=== PATIENT | female | born 1960 | race Caucasian/White ===

== ENCOUNTER → 2018-04-15 10:47 | Outpatient (CLI) | payer OTHER, MEDICAID, SELFPAY ==
[2018-04-15 13:06] LABS: Alanine Aminotransferase 46 IU/L (9-52); Albumin 4.2 g/dL (3.5-5.0); Albumin Globulin Ratio 1.3 (1.0-2.8); Alkaline Phosphatase 54 U/L (38-126); Aspartate Aminotransferase 45 IU/L (14-36); BUN Creatinine Ratio 12.2 (6-22); Bilirubin Total 0.4 mg/dL (0.2-1.3); Blood Urea Nitrogen 11 mg/dL (7-17); Calcium 9.4 mg/dL (8.4-10.2); Carbon Dioxide 27 mmol/L (22-32); Chloride 103 mmol/L (98-107); Estimated Glomerular Filt Rate > 60.0 mL/min (>60); Globulin 3.2 g/dL (1.7-4.1); Glucose 72 mg/dL (70-100); HEMOLYSIS < 15 (0-50); Potassium 4.7 mmol/L (3.4-5.1); Sodium 141 mmol/L (137-145); Total Protein 7.4 g/dL (6.3-8.2)
[2018-04-15 13:15] LABS: Free T3, Triiodothyronine Free 3.54 pg/mL (2.77-5.27); Free T4, Direct Thyroxine 1.17 ng/dL (0.78-2.19)
[2018-04-15 13:29] LABS: Thyroid Stimulating Hormone < 0.02 uIU/mL (0.47-4.68)
== END ==
PROVIDERS: PCP Family Medicine; Visit Provider Family Medicine
DX: E03.9 Hypothyroidism, unspecified (principal)
CPT/HCPCS: 36415; 80053; 84439; 84443; 84481

== ENCOUNTER 2018-12-11 04:18 | Emergency (ER) | payer OTHER, MEDICAID, SELFPAY ==
[2018-12-11 04:25] VITALS: BP 122/82; PULSE 88; RESP 18; TEMP 36.4; O2SAT 98; BMI 29.2
--- NOTE | 2018-12-11 04:32 | DI.CT.S_ITS ---
PROCEDURE: CT HEAD/BRAIN WO CON INDICATIONS: syncope with head injury TECHNIQUE: Noncontrast 4.5 mm thick angled axial sections acquired from the foramen magnum to the vertex, with coronal and sagittal reformats. For radiation dose reduction, the following was used: automated exposure control, adjustment of mA and/or kV according to patient size. COMPARISON: None. FINDINGS: Image quality: Excellent. CSF spaces: Basal cisterns are patent. No extra-axial fluid collections. The ventricles are symmetric in size and shape. Brain: No intracranial bleeds or masses. There is cerebral volume loss for age, with resultant ventricular and sulcal prominence. There are periventricular and deep white matter chronic small vessel ischemic changes. There is intracranial internal carotid artery atherosclerosis. Skull and face: Mild left frontal scalp swelling. Calvarium and visualized facial bones appear intact, without suspicious lesions. Sinuses: Visualized sinuses and mastoids are clear. IMPRESSION: 1. No acute intracranial abnormalities. No significant discrepancy with the shift manager radiology preliminary report. Dictated by: Radha Bustamante M.D. on 12/11/2018 at 7:37 Approved by: Radha Bustamante M.D. on 12/11/2018 at 7:39
[2018-12-11 05:02] LABS: Add Manual Diff / Slide Review NO; Basophils Absolute Auto 100 /uL (0-100); Basophils Percent Auto 0.9 % (0-2); Eosinophils Absolute Auto 500 /uL (0-450); Eosinophils Percent Auto 8.4 % (2-4); Lymphocytes Absolute Auto 1800 /uL (1100-4500); Mean Corpuscular HGB Conc 33.3 % (30-36); Mean Corpuscular Hemoglobin 31.4 PG (26-34); Mean Corpuscular Volume 94.6 fL (80-100); Monocytes Absolute Auto 500 /uL (0-900); Monocytes Percent Auto 7.1 % (3-14); Neutrophils Absolute Auto 3700 /uL (1500-7000); Neutrophils Percent Auto 56.6 % (50-75); Platelet Count 293 X10^3/uL (150-400); Red Blood Cell Count 4.13 X10^6/uL (4.0-5.2); Red Cell Distribution Width 13.8 % (11.6-14.8); White Blood Cell Count 6.5 X10^3/uL (4.5-11.0)
[2018-12-11 05:09] LABS: Blood Urea Nitrogen 9 mg/dL (7-17); Calcium 9.4 mg/dL (8.4-10.2); Carbon Dioxide 25 mmol/L (22-32); Chloride 105 mmol/L (98-107); Estimated Glomerular Filt Rate > 60.0 mL/min (>60); Glucose 87 mg/dL (70-100); HEMOLYSIS < 15 (0-50); Potassium 3.9 mmol/L (3.4-5.1); Sodium 140 mmol/L (137-145)
--- NOTE | 2018-12-11 05:24 | ED_ITS ---
HPI - Head Injury General Chief complaint: Head Injury Stated complaint: KNOCKED YOURSELF OUT Time Seen by Provider: 12/11/18 04:21 Source: patient Mode of arrival: ambulatory Limitations: no limitations History of Present Illness HPI Narrative: 58-year-old female nonsmoker with history fibromyalgia and a yet undiagnosed gait disturbance presents with a chief complaint of what she suspects is a trip and fall with a head injury resulting in a brief loss of consciousness. She awoke in her bathtub with a frontal headache and an abrasion on her forehead and suspects that she tripped and fell, knocking herself out. She admits to a mild headache but denies any other symptoms such as nausea, vomiting, blurred vision or other. She takes no blood thinners denies alcohol or other injury. She was able to safely and easily walk from her home [address] without difficulty. She states she has had many falls and multiple evaluations including MRIs for the possibility of multiple sclerosis which in the and were unremarkable. MD Complaint: head injury Onset (ago): minute(s) Mechanism of Injury: fall Place: home Loss of Consciousness: yes Location of injury: frontal Severity: mild Quality: aching Radiation: none Other Injuries: none Associated symptoms: denies other symptoms Related Data Home Medications Medication Instructions Recorded Confirmed pilocarpine 5 mg tablet 5 mg PO TID PRN 04/16/18 10/02/18 Previous Rx's Medication Instructions Recorded beclomethasone dipropionate [Qvar] 1 puff INH BID #1 inh 10/26/16 spinosad [Natroba] 120 ml TOPICAL X1 #1 ea 10/22/17 albuterol sulfate [Ventolin HFA] 0 INH SEE INSTRUCTIONS #1 inh 12/04/17 gabapentin [Neurontin] 300 mg PO TIDP PRN #90 cap 01/27/18 hydrocodone 5 mg-acetaminophen 300 1 tab PO Q4-6H PRN #7 tab 04/26/18 mg tablet pantoprazole 40 mg tablet,delayed 40 mg PO DAILY #30 tab 04/26/18 release psyllium husk 3.4 gram/5.4 gram 1 tbsp PO DAILY #660 gram 04/26/18 oral powder liothyronine [Cytomel] 15 mcg PO QDAY #270 tab 05/23/18 polyethylene glycol 3350 17 17 gram PO DAILY #510 gram 06/04/18 gram/dose oral powder alprazolam 1 mg tablet 1 mg PO .QIDP #120 tab 10/02/18 amitriptyline 100 mg tablet See Rx Instructions PO HS #45 tab 10/02/18 bupropion HCl SR 150 mg tablet,12 300 mg PO QAM #60 tab 10/02/18 hr sustained-release fluoxetine 20 mg capsule 40 mg PO DAILY #60 cap 10/02/18 baclofen 10 mg tablet 20 mg PO Q8H PRN #60 tab 11/07/18 levothyroxine 0.1 mg PO QAM #90 tab 11/24/18 estradiol 0.1 mg/24 hr semiweekly 1 patch TRANSDERMAL 2XW #8 each 11/25/18 transdermal patch Allergies Allergy/AdvReac Type Severity Reaction Status Date / Time Penicillins [PENICILLINS] Allergy Intermediate HIVES Verified 06/04/18 14:31 Sulfa (Sulfonamide Allergy Intermediate HIVES Verified 06/04/18 14:31 Antibiotics) Review of Systems Constitutional Denies chills, Denies fever(s), Reports frequent falls, Reports headache(s), Denies lethargy and Denies weakness Eyes Denies change in vision, Denies eye discharge, Denies irritation and Denies loss of vision ENT Ears, Nose, Mouth, and Throat: Denies change in voice, Reports headache(s), Denies neck pain and Denies sore throat Cardiovascular Denies chest pain, Denies irregular heart rhythm, Denies lightheadedness, Denies palpitations, Denies dyspnea, Denies dyspnea on exertion and Denies orthopnea Respiratory Denies cough, Denies dyspnea, Denies dyspnea on exertion and Denies wheezing Gastrointestinal Gastrointestinal: Denies abdominal pain, Denies change in bowel habits, Denies diarrhea, Denies nausea and Denies vomiting Genitourinary Denies hematuria, Denies flank pain, Denies urinary incontinence and Denies urinary urgency Musculoskeletal Denies neck pain Integumentary/Breasts Denies pruritus, Denies erythema, Denies rash and Denies wounds Neurologic Denies confusion, Reports frequent falls, Reports headache(s), Denies loss of vision and Denies weakness Psychiatric Denies anxiety, Denies confusion, Denies depression, Denies homicidal ideation and Denies suicidal ideation Endocrine Denies palpitations Hematologic/Lymphatic Denies easy bruising Allergic/Immunologic Denies wheezing PFSH Medical History ADD (attention deficit disorder) (Chronic) ADHD (attention deficit hyperactivity disorder) (Chronic) Agoraphobia (Chronic) Anemia (Chronic) Ankle pain (Chronic ~1997) Anorexia nervosa (Chronic ~1975) Anxiety (Chronic) Asthma (Chronic ~1967) Chlamydia (Chronic ~1983) Colon polyps (Chronic ~1998) Depression (Chronic) Eczema (Chronic) Fibromyalgia (Chronic) Hemorrhoids (Chronic ~1983) History of frequent headaches (Chronic) Hypothyroidism (Chronic) IBS (irritable bowel syndrome) (Chronic ~1978) Migraines (Chronic ~1983) Oral herpes (Chronic) Ovarian cyst (Chronic) PTSD (post-traumatic stress disorder) (Chronic) Painful menstrual periods (Chronic) Rubella (Chronic) Seasonal allergies (Chronic) Shoulder pain (Chronic) Tinnitus (Chronic) Abnormal chest x-ray (Resolved ~2005) Chickenpox (Resolved) History of ankle fracture (Resolved ~1973) History of toe fracture (Resolved ~2012) History of wrist fracture (Resolved ~2012) Irregular menstrual cycle (Resolved) Measles (Resolved ~1971) Seizure (Resolved ~1988) Raynaud's disease (Inactive) Surgical History History of corrected cleft lip and palate (Resolved ~1962) Anesthesia (Inactive) History of bladder suspension procedure Status post hysterectomy with oophorectomy (~2005) Status post tonsillectomy and adenoidectomy (~1996) Family History Father Mental health problem Grandfather Heart disease Grandmother Cancer Stroke Sister Age: 63 Mental health problem Grandfather No problems noted. Grandmother Old age Social History Smoking Status: Never smoker Family History Father Mental health problem Grandfather Heart disease Grandmother Cancer Stroke Sister Age: 63 Mental health problem Grandfather No problems noted. Grandmother Old age Social History Smoking Status: Never smoker Exam Narrative Exam Narrative: GENERAL: 58-year-old female appears stated age, a bit anxious but otherwise no significant or obvious distress HEAD: Forehead abrasion with underlying hematoma approximately 2 x 3 cm. No depressed skull fracture EYES: Pupils equal round and reactive. Extraocular motions intact. No scleral icterus. No injection or drainage. ENT: Nose without bleeding, purulent drainage or septal hematoma. Throat without erythema, tonsillar hypertrophy or exudate. Uvula midline. Airway patent. NECK: Trachea midline. No JVD or lymphadenopathy. No midline tenderness or step-off. Painless full range of motion CARDIOVASCULAR: Regular rate and rhythm without murmurs, gallops, or rubs. RESPIRATORY: Clear to auscultation. Breath sounds equal bilaterally. No wheezes, rales, or rhonchi. GASTROINTESTINAL: Abdomen soft, non-tender, nondistended. No hepato- splenomegaly, or palpable masses. No guarding. EXTREMITIES: No clubbing, cyanosis, or edema. No joint tenderness, effusion, or edema noted. BACK: Nontender without deformity or crepitance. No flank tenderness. NEURO: AOx3. SKIN: 1 x 3 cm superficial partial-thickness burn, healing on volar surface of left forearm Initial Vital Signs Initial Vital Signs: Vital Signs Temperature 97.6 F 12/11/18 04:25 Pulse Rate 88 12/11/18 04:25 Respiratory Rate 18 12/11/18 04:25 Blood Pressure 122/82 12/11/18 04:25 Pulse Oximetry 98 12/11/18 04:25 Scores NIH Stroke Scale Level of Conciousness: Alert, keenly responsive Ask month/age: Answers both questions correctly. Open/close eyes, close hand: Performs both tasks correctly Best gaze horizontal: Normal Visual winkler: No visual loss Facial palsy: Normal symetrical movement Left arm drift: No drift for full 10 sec Right arm drift: No drift for full 10 sec Left leg drift: No drift for full 10 sec Right leg drift: No drift for full 10 sec Limb ataxia: Absent Sensory on face/arms/legs: Normal, no sensory loss Best language: No aphasia, normal Dysarthria: Normal Extinction or inattention: No abnormality Total NIH Stroke scale score: 0 Course Orders Ordered: Discontinued Medications Sodium Chloride (Normal Saline 0.9%) 1,000 mls @ 1,000 mls/hr IV BOLUS ONE Stop: 12/11/18 06:38 Last Infusion: 12/11/18 06:47 Dose: 1,000 mls/hr Admin: 12/11/18 05:45 Dose: 1,000 mls/hr Sodium Chloride (Normal Saline 0.9%) 1,000 mls @ 1,000 mls/hr IV BOLUS ONE Stop: 12/11/18 07:13 Last Admin: 12/11/18 06:27 Dose: Not Given Pantoprazole Sodium (Protonix) 40 mg IV NOW ONE Stop: 12/11/18 06:15 Last Admin: 12/11/18 06:27 Dose: Not Given Vital Signs - 8 hr 12/11/18 04:25 12/11/18 05:39 12/11/18 06:01 Temperature 97.6 F Pulse Rate 88 68 Pulse Rate [Orthostatic Lying] 74 Pulse Rate [Orthostatic Sitting] 75 Pulse Rate [Orthostatic Standing] 87 Respiratory Rate 18 14 Blood Pressure 122/82 Blood Pressure [Left Arm] 111/63 Blood Pressure [Orthostatic Lying] 106/62 Blood Pressure [Orthostatic Sitting] 112/66 Blood Pressure [Orthostatic Standing] 87/61 L Pulse Oximetry 98 99 MDM - Head Injury Medical Records Attestation: I reviewed the patient's medical records. Lab Data Attestation: I reviewed the patient's lab results. Result diagrams: 12/11/18 04:38 12/11/18 04:38 Lab Results 12/11/18 12/11/18 12/11/18 Range/Units 04:38 04:38 04:38 WBC 6.5 (4.5-11.0) X10^3/uL RBC 4.13 (4.0-5.2) X10^6/uL Hgb 13.0 (12.0-16.0) g/dL Hct 39.0 (36-46) % MCV 94.6 (80-100) fL MCH 31.4 (26-34) PG MCHC 33.3 (30-36) % RDW 13.8 (11.6-14.8) % Plt Count 293 (150-400) X10^3/uL Neut % (Auto) 56.6 (50-75) % Lymph % (Auto) 27.0 (25-40) % [place] % (Auto) 7.1 (3-14) % Eos % (Auto) 8.4 H (2-4) % Baso % (Auto) 0.9 (0-2) % Neut # (Auto) 3700 (1864-3428) /uL Lymph # (Auto) 1800 (3179-4017) /uL [place] # (Auto) 500 (0-900) /uL Eos # (Auto) 500 H (0-450) /uL Baso # (Auto) 100 (0-100) /uL Sodium 140 (137-145) mmol/L Potassium 3.9 (3.4-5.1) mmol/L Chloride 105 (98-107) mmol/L Carbon Dioxide 25 (22-32) mmol/L BUN 9 (7-17) mg/dL Creatinine 0.90 (0.52-1.04) mg/dL Estimated GFR > 60.0 (>60) mL/min BUN/Creatinine Ratio 10.0 (6-22) Glucose 87 (70-100) mg/dL Calcium 9.4 (8.4-10.2) mg/dL TSH 5.92 H (0.47-4.68) uIU/mL Free T4 0.65 L (0.78-2.19) ng/dL Free T3 2.29 L (2.77-5.27) pg/mL Prolactin (3.0-18.6) ng/mL Urine RBC (0-5/HPF) Urine WBC (0-5/HPF) Ur Squamous Epith Cells Urine Bacteria (None) Hyaline Casts (None) Ur Culture Indicated? Micro UA Comment 12/11/18 12/11/18 Range/Units 04:38 05:04 WBC (4.5-11.0) X10^3/uL RBC (4.0-5.2) X10^6/uL Hgb (12.0-16.0) g/dL Hct (36-46) % MCV (80-100) fL MCH (26-34) PG MCHC (30-36) % RDW (11.6-14.8) % Plt Count (150-400) X10^3/uL Neut % (Auto) (50-75) % Lymph % (Auto) (25-40) % [place] % (Auto) (3-14) % Eos % (Auto) (2-4) % Baso % (Auto) (0-2) % Neut # (Auto) (8685-5050) /uL Lymph # (Auto) (7301-2683) /uL [place] # (Auto) (0-900) /uL Eos # (Auto) (0-450) /uL Baso # (Auto) (0-100) /uL Sodium (137-145) mmol/L Potassium (3.4-5.1) mmol/L Chloride (98-107) mmol/L Carbon Dioxide (22-32) mmol/L BUN (7-17) mg/dL Creatinine (0.52-1.04) mg/dL Estimated GFR (>60) mL/min BUN/Creatinine Ratio (6-22) Glucose (70-100) mg/dL Calcium (8.4-10.2) mg/dL TSH (0.47-4.68) uIU/mL Free T4 (0.78-2.19) ng/dL Free T3 (2.77-5.27) pg/mL Prolactin 9.2 (3.0-18.6) ng/mL Urine RBC 0-1/hpf (0-5/HPF) Urine WBC 0-1/hpf (0-5/HPF) Ur Squamous Epith Cells 10-30 /hpf H Urine Bacteria Moderate (10-30) H (None) Hyaline Casts 1-5/lpf (None) Ur Culture Indicated? Cult not indicated Micro UA Comment * Urine Dip Bedside Urine Glucose Negative Bedside Urine Bilirubin - Negative Bedside Urine Ketone - Negative Urine Specific [place] 1.025 Bedside Urine Occult Blood +/- Bedside Urine pH 6.0 Bedside Urine Protein +/- 15 Bedside Urine Urobilinogen - Negative Bedside Urine Nitrite - Negative Bedside Urine Leukocytes - Negative Esterase Imaging Data CT scan - head: Radiologist's impression: Left frontal scalp swelling, no fracture or intracranial abnormality Discharge Plan Departure Patient Disposition: Home Clinical Impression: Contusion of forehead Qualifiers: Encounter type: initial encounter Qualified Code(s): S00.83XA - Contusion of other part of head, initial encounter Closed head injury Qualifiers: Encounter type: initial encounter Qualified Code(s): S09.90XA - Unspecified injury of head, initial encounter Fall Qualifiers: Encounter type: initial encounter Qualified Code(s): W19.XXXA - Unspecified fall, initial encounter Anxiety disorder Qualifiers: Anxiety disorder type: generalized anxiety disorder Qualified Code(s): F41.1 - Generalized anxiety disorder Discharge Date/Time: 12/11/18 06:55 Interventions: ED Discharge Assessment Last Done: 12/11/18 06:55 Instructions: DI for Closed Head Injury Activity Restrictions/Additional Instructions: *You have been diagnosed with [ forehead abrasion, contusion, mild concussion, from suspected fall ] *What to do: *Continue to take medications as directed *Follow up with your primary care provider in 2-3 days, call for an appointment. Let them know you were seen in the Emergency Department and that we ask that you be seen in follow up *Return to ER if you should have any new, worsening or concerning symptoms, such as [ increased falls, worsening headache, persistent vomiting, stroke like symptoms such as numbness, unilateral weakness or tingling or any other bothersome symptoms] Prescriptions: No Action hydrocodone-acetaminophen 5-300 mg tablet 1 tab PO Q4-6H PRN (Reason: dental pain) Qty: 7 RF: 0 pantoprazole [Protonix] 40 mg tablet,delayed release (DR/EC) 40 mg PO DAILY Qty: 30 RF: 1 psyllium husk 3.4 gram/5.4 gram powder 1 tbsp PO DAILY Qty: 660 RF: 0 alprazolam 1 mg tablet 1 mg PO .QIDP Qty: 120 RF: 3 amitriptyline 100 mg tablet See Rx Instructions PO HS Qty: 45 RF: 3 fluoxetine 20 mg capsule 40 mg PO DAILY Qty: 60 RF: 2 bupropion HCl 150 mg tablet sustained-release 12 hr 300 mg PO QAM Qty: 60 RF: 2 beclomethasone dipropionate [Qvar] 80 MCG/PUFF aerosol 1 puff INH BID Qty: 1 RF: 3 spinosad [Natroba] 120 ML suspension 120 ml Topical X1 Qty: 1 RF: 1 albuterol sulfate [Ventolin HFA] 90 MCG/PUFF HFA aerosol inhaler INH SEE INSTRUCTIONS Qty: 1 RF: 5 gabapentin [Neurontin] 300 MG capsule 300 mg PO TIDP PRNQty: 90 RF: 1 liothyronine [Cytomel] 5 mcg tablet 15 mcg PO QDAY Qty: 270 RF: 1 baclofen 10 mg tablet 20 mg PO Q8H PRN (Reason: spasms) Qty: 60 RF: 0 levothyroxine 100 mcg tablet 0.1 mg PO QAM Qty: 90 RF: 1 estradiol [Vivelle-Dot] 0.1 mg/24 hr patch semiweekly 1 patch Transdermal 2XW Qty: 8 RF: 2 polyethylene glycol 3350 [Miralax] 17 gram/dose powder 17 gram PO DAILY Qty: 510 RF: 5 pilocarpine HCl 5 mg tablet 5 mg PO TID PRNRF: 0 Referrals: Irene Reese DO [Primary Care Provider] -
[2018-12-11 05:34] LABS: Prolactin 9.2 ng/mL (3.0-18.6)
[2018-12-11 05:39] VITALS: BP 106/62; BP 112/66; BP 87/61; PULSE 74; PULSE 75; PULSE 87
[2018-12-11 05:44] LABS: Bacteria Urine Moderate (10-30); Hyaline Casts Urine 1-5/LPF; RBC Urine 0-1/HPF (0-5/HPF); Squamous Epithelial Cell Urine 10-30 /HPF; WBC Urine 0-1/HPF (0-5/HPF)
[2018-12-11 05:45] LABS: Culture Indicated Urine Cult Not Indicated
[2018-12-11] MEDS: SODIUM CHLORIDE 0.9% 1,000 ML 1000 ML IV (05:45)
[2018-12-11 05:48] LABS: Free T3, Triiodothyronine Free 2.29 pg/mL (2.77-5.27); Free T4, Direct Thyroxine 0.65 ng/dL (0.78-2.19)
[2018-12-11 06:01] VITALS: BP 111/63; PULSE 68; RESP 14; O2SAT 99
[2018-12-11 06:02] LABS: Thyroid Stimulating Hormone 5.92 uIU/mL (0.47-4.68)
[2018-12-11 06:48] VITALS: BP 118/69; PULSE 75; RESP 20; O2SAT 99
[2018-12-11 06:55] VITALS: BP 118/69; PULSE 77; RESP 14; O2SAT 100
[2018-12-13 20:16] LABS: Triiodothyronine T3 Total 74 ng/dL (76-181)
== END 2018-12-11 06:55 | disposition home or self-care (01) ==
PROVIDERS: Emergency Provider Emergency Medicine; PCP Family Medicine
DX: S00.83XA Contusion of other part of head, initial encounter (principal); S09.90XA Unspecified injury of head, initial encounter; F41.1 Generalized anxiety disorder; W01.0XXA Fall on same level from slipping, tripping and stumbling without subsequent striking against object, initial encounter
CPT/HCPCS: 36415; 70450; 80048; 81003; 81015; 84146; 84439; 84443; 84480; 84481; 84482; 85025; 93005; 96360; 99283; 99285

== ENCOUNTER → 2018-12-23 11:51 | Outpatient (CLI) | payer OTHER, MEDICAID, SELFPAY ==
--- NOTE | 2018-12-23 11:54 | DI.RAD.S_ITS ---
PROCEDURE: XR ELBOW RT MIN 3V INDICATIONS: Right elbow pain TECHNIQUE: 3 views of the elbow were acquired. COMPARISON: None. FINDINGS: Bones: No fractures or dislocations. No suspicious bony lesions. Soft tissues: No elbow joint effusion. No suspicious soft tissue calcifications. IMPRESSION: No fracture or dislocation. If clinical symptoms persist or clinical suspicion for pathology is high, advanced imaging such as CT or MRI is suggested for further evaluation. Dictated by: Radha Bustamante M.D. on 12/23/2018 at 17:06 Approved by: Radha Bustamante M.D. on 12/23/2018 at 17:07
== END ==
PROVIDERS: PCP Family Medicine; Visit Provider Registered Nurse
DX: M25.521 Pain in right elbow (principal)
CPT/HCPCS: 73080

== ENCOUNTER → 2019-08-18 17:48 | Outpatient (CLI) | payer OTHER, MEDICAID, SELFPAY ==
--- NOTE | 2019-08-18 17:50 | DI.RAD.S_ITS ---
PROCEDURE: XR ANKLE RT MIN 3V INDICATIONS: right ankle pain sp fall TECHNIQUE: 3 views of the ankle were acquired. COMPARISON: None. FINDINGS: Bones: No fractures or dislocations. Ankle mortise is normally aligned. No suspicious bony lesions. Soft tissues: No tibiotalar joint effusion. Achilles tendon appears normal. IMPRESSION: No fracture. If the patient's symptoms do not improve recommend followup radiographs in 10 days to assess for healing sclerosis/occult injury. Dictated by: Luciano Domínguez M.D. on 08/18/2019 at 18:00 Approved by: Luciano Domínguez M.D. on 08/18/2019 at 18:02
== END ==
PROVIDERS: PCP Family Medicine; Visit Provider Nurse Practitioner Family
DX: M25.571 Pain in right ankle and joints of right foot (principal)
CPT/HCPCS: 73610

== ENCOUNTER → 2019-10-28 17:29 | Outpatient (CLI) | payer OTHER, MEDICAID, SELFPAY | PROVIDERS: PCP Family Medicine; Visit Provider Physician Assistant | DX: R30.0 Dysuria (principal) | CPT/HCPCS: 87077; 87086; 87186 ==

== ENCOUNTER → 2019-12-07 10:00 | Outpatient (CLI) | payer OTHER, MEDICAID, SELFPAY ==
[2019-12-07 11:22] LABS: Free T3, Triiodothyronine Free 2.06 pg/mL (2.77-5.27)
[2019-12-07 11:35] LABS: Thyroid Stimulating Hormone 4.91 uIU/mL (0.47-4.68)
[2019-12-07 11:51] LABS: Alanine Aminotransferase 14 IU/L (<35); Albumin 4.5 g/dL (3.5-5.0); Albumin Globulin Ratio 1.4 (1.0-2.8); Alkaline Phosphatase 45 U/L (38-126); Aspartate Aminotransferase 20 IU/L (14-36); Bilirubin Total 0.5 mg/dL (0.2-1.3); Blood Urea Nitrogen 14 mg/dL (7-17); Carbon Dioxide 28 mmol/L (22-32); Chloride 102 mmol/L (98-107); Cholesterol 271 mg/dL (140-199); Estimated Glomerular Filt Rate 57.1 mL/min (>60); Globulin 3.2 g/dL (1.7-4.1); Glucose 85 mg/dL (70-100); HDL Cholesterol 93 mg/dL (40-60); HEMOLYSIS < 15 (0-50); LDL Cholesterol Calculated 159 mg/dL (<100); Potassium 5.3 mmol/L (3.4-5.1); Sodium 138 mmol/L (137-145); Total Protein 7.7 g/dL (6.3-8.2); Triglycerides 96 mg/dL (35-150)
== END ==
PROVIDERS: PCP Family Medicine; Referring Provider Family Medicine; Visit Provider Family Medicine
DX: E03.9 Hypothyroidism, unspecified (principal)
CPT/HCPCS: 36415; 80053; 80061; 84439; 84443; 84481

== ENCOUNTER → 2019-12-22 12:18 | Outpatient (CLI) | payer OTHER, MEDICAID, SELFPAY ==
--- NOTE | 2019-12-22 12:19 | DI.MG.S_ITS ---
BILATERAL DIGITAL SCREENING MAMMOGRAM 3D/2D WITH CAD: 12/22/2019 CLINICAL: Routine screening. Family history of breast cancer. Comparison is made to exams dated: 05/10/2017 mammogram - [facility], 01/23/2011 mammogram, and 12/04/2007 mammogram - [facility]. There are scattered fibroglandular elements in both breasts. Current study was also evaluated with a Computer Aided Detection (CAD) system. There are benign calcifications in both breasts. No significant masses, calcifications, or other findings are seen in either breast. IMPRESSION: There is no mammographic evidence of malignancy. A 1 year screening mammogram is recommended. This exam was interpreted at Station ID: [id number]. NOTE: For mammograms, a report in lay terms will be sent to the patient. Approximately 15% of breast malignancies will not be visualized mammographically. In the management of a palpable breast mass, a negative mammogram must not discourage biopsy of a clinically suspicious lesion. Electronically Signed By: Eliseo giordano/jennifer:12/22/2019 13:26:17 letter sent: Normal Exam ACR BI-RADS Category 2: Benign Finding(s) 3342F
== END ==
PROVIDERS: PCP Family Medicine; Referring Provider Family Medicine; Visit Provider Family Medicine
DX: Z12.31 Encounter for screening mammogram for malignant neoplasm of breast (principal); Z80.3 Family history of malignant neoplasm of breast
CPT/HCPCS: 77063; 77067

== ENCOUNTER → 2020-06-03 11:30 | Outpatient (CLI) | payer OTHER, MEDICAID, SELFPAY ==
[2020-06-03 14:40] LABS: Appearance Urine UA CLEAR; Bilirubin Urine UA NEGATIVE (NEGATIVE); Color Urine UA YELLOW; Glucose Urine UA NEGATIVE (Negative); Ketones Urine UA TRACE (NEGATIVE); Leukocyte Esterase Urine UA 3+ (NEGATIVE); Nitrite Urine UA POSITIVE (Negative); Occult Blood Urine UA 2+ (Negative); Protein Urine UA TRACE (Negative); Urobilinogen Urine UA 0.2 E.U./dL (0.2)
[2020-06-03 15:06] LABS: pH Urine UA 5.5 (4.5-8.0)
[2020-06-03 15:07] LABS: Bacteria Urine Many (>30); Culture Indicated Urine Specimen Cultured; RBC Urine 1-5/HPF (0-5/HPF); Renal Epithelial Cells Urine 0-1/HPF (0-1/HPF); Squamous Epithelial Cell Urine 1-5 /HPF (0-5/HPF); Transitional Epi Cells Urine 0-1/HPF (0-5/HPF); WBC Urine >100/HPF (0-5/HPF)
== END ==
PROVIDERS: PCP Family Medicine; Referring Provider Family Medicine; Visit Provider Family Medicine
DX: R30.0 Dysuria (principal)
CPT/HCPCS: 81001; 87077; 87086; 87186

== ENCOUNTER → 2020-07-06 14:24 | Outpatient (CLI) | payer OTHER, MEDICAID, SELFPAY ==
[2020-07-06 14:55] LABS: Add Manual Diff / Slide Review NO; Basophils Absolute Auto 100 /uL (0-100); Basophils Percent Auto 1.4 % (0-2); Eosinophils Absolute Auto 300 /uL (0-450); Eosinophils Percent Auto 6.5 % (2-4); Hemoglobin 12.5 g/dL (12.0-16.0); Lymphocytes Absolute Auto 1700 /uL (1100-4500); Lymphocytes Percent Auto 34.9 % (25-40); Mean Corpuscular HGB Conc 33.7 % (30-36); Mean Corpuscular Hemoglobin 31.9 PG (26-34); Mean Corpuscular Volume 94.5 fL (80-100); Monocytes Absolute Auto 300 /uL (0-900); Monocytes Percent Auto 5.6 % (3-14); Neutrophils Absolute Auto 2500 /uL (1500-7000); Neutrophils Percent Auto 51.6 % (50-75); Platelet Count 269 X10^3/uL (150-400); Red Blood Cell Count 3.92 X10^6/uL (4.0-5.2); Red Cell Distribution Width 12.9 % (11.6-14.8); White Blood Cell Count 4.8 X10^3/uL (4.5-11.0)
[2020-07-06 15:19] LABS: HEMOLYSIS < 15 (0-50); Iron 119 ug/dL (37-170)
[2020-07-06 15:25] LABS: Alanine Aminotransferase 37 IU/L (<35); Albumin Globulin Ratio 1.3 (1.0-2.8); Alkaline Phosphatase 54 U/L (38-126); Aspartate Aminotransferase 32 IU/L (14-36); BUN Creatinine Ratio 9.4 (6-22); Bilirubin Total 0.4 mg/dL (0.2-1.3); Blood Urea Nitrogen 10 mg/dL (7-17); Calcium 8.8 mg/dL (8.4-10.2); Carbon Dioxide 27 mmol/L (22-32); Chloride 102 mmol/L (98-107); Estimated Glomerular Filt Rate 53.4 mL/min (>60); Globulin 3.2 g/dL (1.7-4.1); Glucose 90 mg/dL (70-100); HEMOLYSIS < 15 (0-50); Potassium 4.1 mmol/L (3.4-5.1); Sodium 134 mmol/L (137-145); Total Protein 7.2 g/dL (6.3-8.2)
[2020-07-06 15:30] LABS: Percent Iron Saturation 36 % (15-50); Total Iron Binding Capacity 332 ug/dL (265-497); Transferrin 276 mg/dL (206-381)
[2020-07-06 15:36] LABS: Free T3, Triiodothyronine Free 2.85 pg/mL (2.77-5.27); Free T4, Direct Thyroxine 0.78 ng/dL (0.78-2.19)
[2020-07-06 15:50] LABS: Thyroid Stimulating Hormone 0.054 uIU/mL (0.47-4.68)
[2020-07-06 16:10] LABS: Vitamin B12 455 pg/mL (239-931)
[2020-07-06 16:50] LABS: Vitamin D 25 Hydroxy (D3) 30.5 ng/mL (30.0-100.0)
== END ==
PROVIDERS: PCP Family Medicine; Referring Provider Family Medicine; Visit Provider Family Medicine
DX: E03.9 Hypothyroidism, unspecified (principal); E46 Unspecified protein-calorie malnutrition; E89.40 Asymptomatic postprocedural ovarian failure; F50.9 Eating disorder, unspecified; K08.109 Complete loss of teeth, unspecified cause, unspecified class; M85.80 Other specified disorders of bone density and structure, unspecified site
CPT/HCPCS: 36415; 80053; 82306; 82607; 83540; 83550; 84439; 84443; 84481; 85025

== ENCOUNTER → 2020-07-15 14:41 | Outpatient (CLI) | payer OTHER, MEDICAID, SELFPAY ==
--- NOTE | 2020-07-15 14:42 | DI.RAD.S_ITS ---
PROCEDURE: XR DEXA AXIAL SKELETON INDICATIONS: postmenopausal COMPARISON: None. FINDINGS: This blank DEXA report has been sent in error by the PACS system. The correct and complete report will be forthcoming in 1-2 days. Thank you for your patience and understanding. Dictated by: Vesta Gresham MD, PhD on 07/15/2020 at 16:14 Approved by: Vesta Gresham MD, PhD on 07/15/2020 at 16:14
== END ==
PROVIDERS: PCP Family Medicine; Referring Provider Family Medicine; Visit Provider Family Medicine
DX: M85.852 Other specified disorders of bone density and structure, left thigh (principal); Z78.0 Asymptomatic menopausal state
CPT/HCPCS: 77080

== ENCOUNTER → 2020-11-12 10:29 | Outpatient (CLI) | payer OTHER, MEDICAID, SELFPAY ==
[2020-11-12 11:21] LABS: Alanine Aminotransferase 64 IU/L (<35); Albumin 4.3 g/dL (3.5-5.0); Albumin Globulin Ratio 1.5 (1.0-2.8); Alkaline Phosphatase 51 U/L (38-126); Aspartate Aminotransferase 38 IU/L (14-36); BUN Creatinine Ratio 21.2 (6-22); Bilirubin Total 0.1 mg/dL (0.2-1.3); Blood Urea Nitrogen 24 mg/dL (7-17); Calcium 9.5 mg/dL (8.4-10.2); Carbon Dioxide 30 mmol/L (22-32); Chloride 101 mmol/L (98-107); Estimated Glomerular Filt Rate 49.5 mL/min (>60); Globulin 2.9 g/dL (1.7-4.1); Glucose 93 mg/dL (70-100); HEMOLYSIS < 15 (0-50); Potassium 4.3 mmol/L (3.4-5.1); Sodium 136 mmol/L (137-145); Total Protein 7.2 g/dL (6.3-8.2)
[2020-11-12 11:38] LABS: Free T3, Triiodothyronine Free 2.58 pg/mL (2.77-5.27); Free T4, Direct Thyroxine 0.95 ng/dL (0.78-2.19)
== END ==
PROVIDERS: PCP Family Medicine; Referring Provider Family Medicine; Visit Provider Family Medicine
DX: E03.9 Hypothyroidism, unspecified (principal); E78.5 Hyperlipidemia, unspecified
CPT/HCPCS: 36415; 80053; 84439; 84443; 84481

== ENCOUNTER → 2020-12-21 14:14 | Outpatient (CLI) | payer OTHER, MEDICAID, SELFPAY ==
--- NOTE | 2020-12-21 14:15 | DI.US.S_ITS ---
PROCEDURE: US ABDOMEN COMPLETE INDICATIONS: lab abnormalities TECHNIQUE: Real-time scanning was performed of the abdominal and retroperitoneal organs, with image documentation. COMPARISON: None. FINDINGS: Liver: Liver is normal in size and homogeneous in echotexture. Gallbladder: Normally distended without wall thickening, sludge, or gallstone. Negative sonographic Payton's sign is reported by the animal technician. Biliary ducts: Normal caliber intrahepatic and extrahepatic biliary ducts. Pancreas: Visualized portions of the pancreas are sonographically normal. Spleen: Spleen is normal in size and homogeneous in echotexture. Kidneys: Normal size and appearance of both kidneys. Aorta: Visualized aorta is normal in caliber at less than 3 cm. Iliacs: Proximal common iliac arteries are normal in caliber at less than 2.5 cm. IVC: Intrahepatic inferior vena cava is patent. Miscellaneous: No free abdominal fluid. IMPRESSION: No acute finding. Dictated by: Cl Menjivar M.D. on 12/21/2020 at 15:19 Approved by: Cl Menjivar M.D. on 12/21/2020 at 15:20
== END ==
PROVIDERS: PCP Family Medicine; Referring Provider Family Medicine; Visit Provider Family Medicine
DX: N18.31 Chronic kidney disease, stage 3a (principal); R79.89 Other specified abnormal findings of blood chemistry
CPT/HCPCS: 76700

== ENCOUNTER → 2021-01-09 09:42 | Outpatient (CLI) | payer OTHER, MEDICAID, SELFPAY ==
[2021-01-09 13:17] LABS: COVID19 -Nasal RAPID Negative (Negative)
== END ==
PROVIDERS: PCP Family Medicine; Visit Provider Surgery
DX: Z20.822 Contact with and (suspected) exposure to COVID-19 (principal)
CPT/HCPCS: 87635; C9803

== ENCOUNTER 2021-01-10 09:38 | Day surgery (SDC) | payer OTHER, MEDICAID, SELFPAY ==
[2021-01-10] MEDS: LACTATED RINGERS 1,000 ML 42 ML IV (10:20)
[2021-01-10 10:26] VITALS: BP 103/68; PULSE 77; RESP 15; TEMP 36.4; O2SAT 100; BMI 29.5
--- NOTE | 2021-01-10 12:00 | PM.PREOP ---
Pre-operative Note Interval Note History & Physical reviewed/Exam performed by Physician: Yes Changes to H&P: No
--- NOTE | 2021-01-10 12:49 | PM.OP.ENDO ---
Operative Date/Time/Diagnoses Date of procedure: 01/10/21 Time of procedure: 12:49 Pre-op diagnosis: Personal history of colonic polyps Post-op diagnosis: same Procedure & Clinicians Study performed: Colonoscopy Same procedure as scheduled: Yes Indications: 60-year-old woman personal history of colonic polyps here for routine colonoscopy Surgeon: Reese Lozoya Procedure Notes Procedure in detail: The history and physical was performed/updated and the patient is ASA class is 2. The procedure was discussed in detail with the patient. Potential risks complications including infection, bleeding, missed diagnosis, perforation, need for surgery, and were explained. Their questions were answered and informed consent was obtained. Patient was brought to the procedure room and placed standard monitoring equipment. The patient's vital signs were monitored continuously throughout the entire procedure. Prior to starting time-out was performed. The patient was placed in the left lateral recumbent position. Procedural sedation was administered with propofol by Anesthesia.. Examination began with a thorough inspection of the perianal area there was no evidence of fissures, fistulae, external hemorrhoids or cutaneous malignancy. The colonoscopy scope was then placed into the anal canal and was advanced to the cecum, which was identified by the ileocecal valve, the appendiceal orifice and the confluence of the taenia. The scope was then slowly withdrawn examining colon thoroughly in all directions, irrigating it of any residual stool. No masses or polyps Sigmoid diverticulosis The patient tolerated the procedure well. They will be discharged once criteria are met. The prep was of good/excellent quality. The withdrawl time was 7 minutes. The sedation time was 19 minutes. Specimen(s): none sent Complications: none Impression: Normal colonoscopy Post-procedure Recommendations: Colonscopy in 10 years Disposition: same day surgery
[2021-01-10 12:56] VITALS: BP 110/70; PULSE 76; RESP 10; TEMP 36.3; O2SAT 100
[2021-01-10 13:01] VITALS: BP 117/72; PULSE 79; RESP 14; TEMP 36.2; O2SAT 99
[2021-01-10 13:06] VITALS: BP 121/74; PULSE 75; RESP 14; O2SAT 100
[2021-01-10 13:12] VITALS: BP 116/66; PULSE 78; RESP 11; TEMP 36.2; O2SAT 100
[2021-01-10 13:15] VITALS: BP 111/58; PULSE 71; RESP 14; TEMP 36.3; O2SAT 100
== END 2021-01-10 13:33 | disposition home or self-care (01) ==
PROVIDERS: PCP Family Medicine; Referring Provider Surgery; Visit Provider Surgery
PROC: 0DJD8ZZ Inspection of Lower Intestinal Tract, Via Natural or Artificial Opening Endoscopic (ICD-10-PCS; CPT 45378; principal; 2021-01-10 10:45)
DX: Z12.11 Encounter for screening for malignant neoplasm of colon (principal); Z86.010 Personal history of colon polyps; F43.10 Post-traumatic stress disorder, unspecified; F41.9 Anxiety disorder, unspecified; K57.30 Diverticulosis of large intestine without perforation or abscess without bleeding
CPT/HCPCS: 45378; 99152; J2250; J2704; J3010

== ENCOUNTER → 2021-06-19 16:15 | Outpatient (CLI) | payer OTHER, MEDICAID, SELFPAY ==
--- NOTE | 2021-06-19 16:19 | DI.RAD.S_ITS ---
PROCEDURE: XR HAND RT MIN 3V INDICATIONS: swelling 2nd and 3rd pip TECHNIQUE: 3 views of the hand(s) acquired. COMPARISON: None. FINDINGS: Bones: No fractures or dislocations. Carpal bones are normally aligned. No suspicious bony lesions. Soft tissues: No suspicious soft tissue calcifications. IMPRESSION: Joints are well maintained and no inflammatory arthritic changes. Dictated by: Maurilio Whitaker RRA Interpreted: Ricardo Chew MD on 06/19/2021 at 16:43 Transcribed by: WON on 06/19/2021 at 16:43 Approved by: Ricardo Chew M.D. on 06/19/2021 at 17:15
[2021-06-19 17:11] LABS: Platelet Count 324 X10^3/uL (150-400)
[2021-06-19 17:22] LABS: Hematocrit 42.6 % (36-46); Hemoglobin 14.1 g/dL (12.0-16.0); Mean Corpuscular HGB Conc 33.2 % (30-36); Mean Corpuscular Hemoglobin 30.8 PG (26-34); Mean Corpuscular Volume 92.8 fL (80-100); Red Blood Cell Count 4.58 X10^6/uL (4.0-5.2); Red Cell Distribution Width 13.5 % (11.6-14.8); White Blood Cell Count 6.4 X10^3/uL (4.5-11.0)
[2021-06-19 17:26] LABS: Alanine Aminotransferase 38 IU/L (<35); Albumin 4.9 g/dL (3.5-5.0); Albumin Globulin Ratio 1.4 (1.0-2.8); Alkaline Phosphatase 62 U/L (38-126); Aspartate Aminotransferase 36 IU/L (14-36); BUN Creatinine Ratio 9.8 (6-22); Bilirubin Total 0.5 mg/dL (0.2-1.3); Blood Urea Nitrogen 11 mg/dL (7-17); C-Reactive Protein Quant 0.5 mg/dL (<1.0); Calcium 10.2 mg/dL (8.4-10.2); Carbon Dioxide 24 mmol/L (22-32); Chloride 103 mmol/L (98-107); Globulin 3.6 g/dL (1.7-4.1); Glucose 101 mg/dL (70-100); HEMOLYSIS < 15 (0-50); Potassium 4.9 mmol/L (3.4-5.1); Sodium 136 mmol/L (137-145); Total Protein 8.5 g/dL (6.3-8.2)
[2021-06-19 17:27] LABS: Rheumatoid Factor < 8.6 IU/mL (<12.0)
[2021-06-19 17:39] LABS: Neutrophils Absolute Manual 3776 /uL (3000-5900); RBC Morphology Normal Morphology; Total Cells Counted 100
[2021-06-19 17:53] LABS: Erythrocyte Sedimentation Rate 11 MM/HR (0-20)
[2021-06-21 18:27] LABS: ANA Screen, IFA Positive (.)
[2021-06-21 21:09] LABS: CCP Antibodies IgG/IgA 6 units (0-19)
== END ==
PROVIDERS: PCP Family Medicine; Referring Provider Family Medicine; Visit Provider Family Medicine
DX: M25.549 Pain in joints of unspecified hand (principal); E66.3 Overweight; R79.89 Other specified abnormal findings of blood chemistry; N18.31 Chronic kidney disease, stage 3a; M25.40 Effusion, unspecified joint
CPT/HCPCS: 36415; 73130; 80053; 85025; 85651; 86038; 86140; 86200; 86430

== ENCOUNTER → 2021-07-05 14:31 | Outpatient (CLI) | payer OTHER, MEDICAID, SELFPAY ==
--- NOTE | 2021-07-05 14:32 | DI.US.S_ITS ---
PROCEDURE: US RENAL COMPLETE INDICATIONS: WORSENING RENAL FUNCTION TECHNIQUE: Real-time scanning was performed of the kidneys and bladder, with image documentation. COMPARISON: None. FINDINGS: Kidneys: Kidneys are normal in size. Right kidney measures 9.3 cm long; left kidney measures 9.7 cm long. Right renal cortical thickness is 1.2 cm; left renal cortical thickness is 1.1 cm. Renal cortical echotexture is normal. No hydronephrosis or nephrolithiasis. No suspicious solid mass lesions. Bladder: Pre-void bladder volume is 338 mL. Post-void residual is 0 mL. Pre-void images demonstrate no intraluminal masses or stones. On pre-void images, bilateral ureteral jets are noted with color Doppler interrogation. (Of note, ureteral jets may not be detectable in up to 25% of cases due to insufficient differences in specific gravity between ureteral and bladder urine). Miscellaneous: No free pelvic fluid. IMPRESSION: No hydronephrosis. Dictated by: Olayinka Lizama M.D. on 07/05/2021 at 16:05 Approved by: Olayinka Lizama M.D. on 07/05/2021 at 16:50
== END ==
PROVIDERS: PCP Family Medicine; Referring Provider Family Medicine; Visit Provider Family Medicine
DX: N18.31 Chronic kidney disease, stage 3a (principal)
CPT/HCPCS: 76770

== ENCOUNTER → 2021-08-23 08:42 | Outpatient (CLI) | payer OTHER, MEDICAID, SELFPAY ==
[2021-08-23 11:33] LABS: COVID19 -Nasal RAPID Negative (Negative)
== END ==
PROVIDERS: PCP Family Medicine; Visit Provider Nurse Practitioner Family
DX: Z20.822 Contact with and (suspected) exposure to COVID-19 (principal); R05.9 Cough, unspecified; R43.0 Anosmia; R43.2 Parageusia
CPT/HCPCS: 87635

== ENCOUNTER → 2021-10-04 13:59 | Outpatient (CLI) | payer OTHER, MEDICAID, SELFPAY ==
[2021-10-04 18:20] LABS: Bilirubin Urine UA NEGATIVE (NEGATIVE); Color Urine UA YELLOW; Glucose Urine UA NEGATIVE (Negative); Ketones Urine UA NEGATIVE (NEGATIVE); Leukocyte Esterase Urine UA 3+ (NEGATIVE); Nitrite Urine UA NEGATIVE (Negative); Occult Blood Urine UA 2+ (Negative); Protein Urine UA TRACE (Negative); Urobilinogen Urine UA 0.2 E.U./dL (0.2)
[2021-10-04 18:21] LABS: Appearance Urine UA CLOUDY; pH Urine UA 5.5 (4.5-8.0)
[2021-10-04 18:28] LABS: Bacteria Urine Moderate (10-30); Culture Indicated Urine Specimen Cultured; RBC Urine 5-10/HPF (0-5/HPF); WBC Urine 5-10/HPF (0-5/HPF)
[2021-10-04 18:48] LABS: Creatinine Urine Random 67.9 mg/dL
[2021-10-04 19:07] LABS: Microalbumi Creatinin Ratio Ur 139.9 ug/mg CR (<30); Microalbumin Urine Random 9.5 mg/dL (0-1.6)
== END ==
PROVIDERS: PCP Family Medicine; Referring Provider Family Medicine; Visit Provider Family Medicine
DX: N18.31 Chronic kidney disease, stage 3a (principal); R30.0 Dysuria; R82.90 Unspecified abnormal findings in urine
CPT/HCPCS: 81001; 82043; 82570; 87077; 87086; 87186

== ENCOUNTER → 2022-04-04 09:06 | Outpatient (CLI) | payer OTHER, MEDICAID, SELFPAY ==
[2022-04-04 09:54] LABS: Appearance Urine UA CLEAR; Bilirubin Urine UA NEGATIVE (NEGATIVE); Color Urine UA YELLOW; Glucose Urine UA NEGATIVE (Negative); Ketones Urine UA NEGATIVE (NEGATIVE); Leukocyte Esterase Urine UA NEGATIVE (NEGATIVE); Nitrite Urine UA NEGATIVE (Negative); Occult Blood Urine UA NEGATIVE (Negative); Protein Urine UA NEGATIVE (Negative); Specific Gravity Urine UA <=1.005 (1.000-1.035); Urobilinogen Urine UA 0.2 E.U./dL (0.2)
[2022-04-04 10:31] LABS: Alanine Aminotransferase 40 IU/L (<35); Albumin 4.5 g/dL (3.5-5.0); Albumin Globulin Ratio 1.4 (1.0-2.8); Alkaline Phosphatase 55 U/L (38-126); Bilirubin Total 0.8 mg/dL (0.2-1.3); Blood Urea Nitrogen 14 mg/dL (7-17); Carbon Dioxide 22 mmol/L (22-32); Chloride 100 mmol/L (98-107); Cholesterol 305 mg/dL (140-199); Estimated Glomerular Filt Rate > 60 mL/min (>60); Globulin 3.3 g/dL (1.7-4.1); Glucose 88 mg/dL (70-100); HDL Cholesterol 108 mg/dL (40-60); LDL Cholesterol Calculated 170 mg/dL (<100); Potassium 4.8 mmol/L (3.4-5.1); Sodium 133 mmol/L (137-145); Total Protein 7.8 g/dL (6.3-8.2); Triglycerides 133 mg/dL (35-150)
[2022-04-04 10:33] LABS: HEMOLYSIS 134 (0-50)
[2022-04-04 10:34] LABS: Aspartate Aminotransferase 59 IU/L (14-36)
[2022-04-04 10:43] LABS: Free T3, Triiodothyronine Free 2.21 pg/mL (2.77-5.27); Free T4, Direct Thyroxine 0.85 ng/dL (0.78-2.19)
[2022-04-04 10:55] LABS: RBC Urine 0-1/HPF (0-5/HPF); Squamous Epithelial Cell Urine 1-5 /HPF (0-5/HPF); WBC Urine 0-1/HPF (0-5/HPF)
[2022-04-04 10:56] LABS: Bacteria Urine Few (2-10); Culture Indicated Urine Cult Not Indicated
[2022-04-04 10:57] LABS: Thyroid Stimulating Hormone 0.269 uIU/mL (0.47-4.68)
== END ==
PROVIDERS: PCP Family Medicine; Referring Provider Family Medicine; Visit Provider Family Medicine
DX: E03.9 Hypothyroidism, unspecified (principal); E66.3 Overweight; N18.31 Chronic kidney disease, stage 3a; R79.89 Other specified abnormal findings of blood chemistry; E78.5 Hyperlipidemia, unspecified; Z20.822 Contact with and (suspected) exposure to COVID-19; R30.0 Dysuria
CPT/HCPCS: 36415; 80053; 80061; 81001; 84439; 84443; 84481; 86769

== ENCOUNTER 2022-11-11 20:31 | Emergency (ER) | payer OTHER, MEDICAID, SELFPAY ==
[2022-11-11 20:41] VITALS: BP 165/74; PULSE 99; RESP 25; TEMP 36.8; O2SAT 98; BMI 27.4
--- NOTE | 2022-11-11 20:44 | DI.RAD.S_ITS ---
PROCEDURE: XR CHEST 1V INDICATIONS: chest pain TECHNIQUE: One view of the chest was acquired. COMPARISON: None. FINDINGS: Surgical changes and devices: None. Lungs and pleura: Lungs are clear. No pleural effusions or pneumothorax. Mediastinum: Mediastinal contours appear normal. Heart size is normal. Bones and chest wall: No suspicious bony lesions. Overlying soft tissues appear unremarkable. IMPRESSION: 1. No acute cardiopulmonary disease. Dictated by: Viet Mathias M.D. on 11/11/2022 at 21:06 Approved by: Viet Mathias M.D. on 11/11/2022 at 21:07
[2022-11-11 20:55] LABS: Add Manual Diff / Slide Review NO; Basophils Absolute Auto 100 /uL (0-100); Basophils Percent Auto 0.9 % (0-2); Eosinophils Absolute Auto 100 /uL (0-450); Eosinophils Percent Auto 0.7 % (2-4); Hematocrit 44.8 % (36-46); Hemoglobin 15.4 g/dL (12.0-16.0); Lymphocytes Absolute Auto 3100 /uL (1100-4500); Lymphocytes Percent Auto 29.2 % (25-40); Mean Corpuscular HGB Conc 34.3 % (30-36); Mean Corpuscular Hemoglobin 31.6 PG (26-34); Mean Corpuscular Volume 92.2 fL (80-100); Monocytes Absolute Auto 700 /uL (0-900); Neutrophils Absolute Auto 6500 /uL (1500-7000); Neutrophils Percent Auto 62.2 % (50-75); Platelet Count 352 X10^3/uL (150-400); Red Blood Cell Count 4.86 X10^6/uL (4.0-5.2); Red Cell Distribution Width 13.9 % (11.6-14.8); White Blood Cell Count 10.5 X10^3/uL (4.5-11.0)
[2022-11-11 20:56] LABS: Prothrombin Time 11.3 SECONDS (10.1-12.7)
[2022-11-11] MEDS: ASPIRIN 81 MG CHEW TAB 324 MG PO (20:57)
[2022-11-11 20:59] LABS: PTT Partial Thromboplastin Tim 31 SECONDS (26-36)
[2022-11-11 21:02] LABS: Alanine Aminotransferase 21 IU/L (<35); Albumin 4.9 g/dL (3.5-5.0); Albumin Globulin Ratio 1.3 (1.0-2.8); Alkaline Phosphatase 52 U/L (38-126); Aspartate Aminotransferase 24 IU/L (14-36); BUN Creatinine Ratio 11.2 (6-22); Bilirubin Total 0.7 mg/dL (0.2-1.3); Blood Urea Nitrogen 11 mg/dL (7-17); Calcium 9.7 mg/dL (8.4-10.2); Carbon Dioxide 22 mmol/L (22-32); Chloride 105 mmol/L (98-107); Creatine Kinase 50 U/L (30-135); Estimated Glomerular Filt Rate > 60 mL/min (>60); Globulin 3.9 g/dL (1.7-4.1); Glucose 113 mg/dL (80-110); HEMOLYSIS < 15 (0-50); Lipase 114 U/L (23-300); Magnesium 2.1 mg/dL (1.6-2.3); Potassium 3.8 mmol/L (3.4-5.1); Sodium 138 mmol/L (137-145); Total Protein 8.8 g/dL (6.3-8.2)
[2022-11-11 21:10] LABS: COVID19 -Nasal RAPID Negative (Negative)
--- NOTE | 2022-11-11 21:13 | ED.CHESTPAIN ---
HPI - Chest Pain General Chief Complaint: Chest Pain Stated Complaint: CHEST PAIN, ARM PAIN LT Time Seen by Provider: 11/11/22 20:58 Source: patient and family Mode of arrival: Ambulatory Limitations: no limitations History of Present Illness HPI narrative: 62-year-old female who is here for evaluation of anxiety, left-sided chest pain, radiating down her left arm, problems breathing, upper abdominal pain, nausea, pain is now worse with palpation remove it. The vomiting does not change her discomfort at all. She is afebrile. No prior abdominal surgeries. No urinary symptoms. No lower extremity swelling. Related Data Home Medications Medication Instructions Recorded Confirmed loratadine 10 mg tablet (Allergy 10 mg PO DAILY PRN 12/12/21 08/21/22 Relief (loratadine)) Previous Rx's Medication Instructions Recorded pilocarpine HCl 5 mg tablet 5 mg PO TID PRN dry mouth #90 tabs 08/09/21 Cytomel 5 mcg tablet (liothyronine) 5 mcg PO BID #180 tabs 06/05/22 Synthroid 125 mcg tablet 125 mcg PO DAILY #90 tabs 06/05/22 (levothyroxine) albuterol sulfate 90 mcg/actuation 2 puff inhalation Q4H PRN 06/13/22 aerosol inhaler (Ventolin HFA) bronchospasm #1 inh diphenhydramine HCl 25 mg tablet 50 mg PO Q6H PRN allergic reaction 06/13/22 (Sleep Tablet (diphenhydramine)) #90 tabs fluticasone propionate 110 1 puff inhalation BID #12 grams 06/13/22 mcg/actuation HFA aerosol inhaler (Flovent HFA) tizanidine 4 mg tablet 4 mg PO TID #270 tabs 06/14/22 trazodone 50 mg tablet 100 mg PO BEDTIME PRN insomnia #60 10/16/22 tabs alprazolam 1 mg tablet 1 mg PO QID #120 tabs 10/17/22 estradiol 0.1 mg/24 hr semiweekly 1 patch transdermal 2XW #8 ea 10/19/22 transdermal patch (Vivelle-Dot) gabapentin 300 mg capsule 300 mg PO BID PRN Pain #180 caps 11/06/22 (Neurontin) ondansetron 4 mg disintegrating 4 mg PO Q6H PRN nausea and 11/11/22 tablet vomiting #14 tabs Allergies Allergy/AdvReac Type Severity Reaction Status Date / Time Penicillins [PENICILLINS] Allergy Intermediate HIVES Verified 08/21/22 14:14 Sulfa (Sulfonamide Allergy Intermediate HIVES Verified 08/21/22 14:14 Antibiotics) ciprofloxacin AdvReac Intermediate joint Verified 08/21/22 14:14 pain, abdominal pain Review of Systems Constitutional Constitutional: Reports system reviewed and no additional complaints, except as documented Cardiovascular Cardiovascular: Reports system reviewed and no additional complaints, except as documented Respiratory Respiratory: Reports system reviewed and no additional complaints, except as documented Gastrointestinal Gastrointestinal: Reports system reviewed and no additional complaints, except as documented Integumentary/Breasts Skin/Breast: Reports system reviewed and no additional complaints, except as documented Neurologic Neurologic: Reports system reviewed and no additional complaints, except as documented Hematologic/Lymphatic On Anticoagulants: No Patient History Medical History Abnormal chest x-ray (~2005) ADD (attention deficit disorder) Adenomatous polyp of colon (06/17/17) ADHD (attention deficit hyperactivity disorder) Agoraphobia Anemia Ankle pain (~1997) Anorexia nervosa (~1975) Anxiety Asthma (~1967) Chickenpox Chlamydia (~1983) Chronic kidney disease (CKD) stage G3a/A1, moderately decreased glomerular filtration rate (GFR) between 45-59 mL/min/1.73 square meter and albuminuria creatinine ratio less than 30 mg/g Colon polyps (~1998) Depression Eczema Edentulous Elevated LFTs Fibromyalgia Hemorrhoids (~1983) History of ankle fracture (~1973) History of frequent headaches History of toe fracture (~2012) History of wrist fracture (~2012) Hypothyroidism IBS (irritable bowel syndrome) (~1978) Irregular menstrual cycle Measles (~1971) Migraines (~1983) Oral herpes Osteopenia after menopause Ovarian cyst Overweight (BMI 25.0-29.9) Painful menstrual periods PTSD (post-traumatic stress disorder) Raynaud's disease Rubella Seasonal allergies Seizure (~1988) Shoulder pain Tinnitus Surgical History Anesthesia History of bladder suspension procedure History of corrected cleft lip and palate (~1962) Status post hysterectomy with oophorectomy (~2005) Status post tonsillectomy and adenoidectomy (~1996) Family History (Updated 01/04/21 @ 21:36 by Irene Reese DO) Father Mental health problem Colon cancer Grandfather Heart disease Grandmother Cancer Stroke Sister Age: 66 Mental health problem Grandfather No problems noted. Grandmother Old age Brother FH: prostate cancer Social History marital status: household members: spouse occupational status: disabled Smoking Status: Never smoker alcohol intake: current substance use type: does not use Smoking Status: Never smoker alcohol intake frequency: a few times a week Substance Use Type: does not use Exam Initial Vital Signs Initial Vital Signs: Vital Signs Temperature 98.2 F 11/11/22 20:41 Pulse Rate 99 H 11/11/22 20:41 Respiratory Rate 25 H 11/11/22 20:41 Blood Pressure 165/74 H 11/11/22 20:41 Pulse Oximetry 98 11/11/22 20:41 Oxygen Delivery Method 11/11/22 20:41 Const General: cooperative, comfortable and No ill appearing HENKY Head: normal to inspection and normocephalic Resp Effort & Inspection: normal respiratory effort and not labored Cardio Rate: regular rate Rhythm: regular rhythm GI Inspection: normal to inspection and non-distended Skin General: no rashes or lesions noted Neuro General: patient alert, patient awake and moves all extremities Extrem General: capillary refill normal Psych Appearance: grossly normal Scores HEART Score Heart Score history: Slightly Suspicious Heart Score EKG: Normal Heart Score Age: 45-64 years old Heart Score risk factors: No known risk factors Heart Score troponin: < or = to normal limit Heart Score Total: 1 Course Orders Ordered: ED Orders 11/11/22 20:40 Complete Blood Count AUTO DIFF Stat Comprehensive Metabolic Panel Stat Lipase Stat Magnesium Stat Partial Thromboplastin Time Stat Prothrombin Time INR Stat Troponin & CK Cardiac Panel Stat 11/11/22 20:44 XR chest 1V Stat EKG-12 Lead Stat 11/11/22 20:50 COVID19 -Nasal RAPID/Pre-Proc Stat 11/11/22 22:46 Troponin & CK Cardiac Panel Stat Discontinued Medications Aspirin (Aspirin 81 Mg Chew Tab) 324 mg PO NOW ONE Stop: 11/11/22 20:45 Last Admin: 11/11/22 20:57 Dose: 324 mg Documented By: GC Lorazepam (Lorazepam 2 Mg/Ml Inj) 1 mg IV NOW ONE Stop: 11/11/22 21:15 Last Admin: 11/11/22 21:30 Dose: 1 mg Documented By: BEAN Lorazepam (Lorazepam 2 Mg/Ml Inj) 1 mg IV NOW ONE Stop: 11/11/22 21:58 Last Admin: 11/11/22 22:03 Dose: 1 mg Documented By: BEAN Ondansetron HCl (Ondansetron 4 Mg/2 Ml Inj) 4 mg IV NOW ONE Stop: 11/11/22 21:15 Last Admin: 11/11/22 21:30 Dose: 4 mg Documented By: BEAN Ondansetron HCl (Ondansetron 4 Mg Odt Prepack) 1 bottle MISC SEEINSTR ONE Stop: 11/11/22 23:45 Last Admin: 11/12/22 00:14 Dose: 1 bottle Documented By: EMELIA Vital Signs Vital signs: Vital Signs - 8 hr 11/11/22 20:41 11/12/22 00:12 11/11/22 22:51 Temperature 98.2 F Pulse Rate 99 H 68 70 Respiratory Rate 25 H 20 Blood Pressure 165/74 H 117/62 Pulse Oximetry 98 99 Oxygen Delivery Method Room Air Room Air 11/11/22 23:00 11/11/22 23:30 11/12/22 00:00 Temperature Pulse Rate 80 83 74 Respiratory Rate 22 20 18 Blood Pressure Pulse Oximetry 98 Oxygen Delivery Method 11/12/22 00:07 11/12/22 00:07 Temperature 97.4 F L Pulse Rate 72 Respiratory Rate 18 20 Blood Pressure 117/62 Pulse Oximetry 98 98 Oxygen Delivery Method MDM - Chest Pain Differential Diagnosis Differential diagnosis: Likely fracture of rib, pneumothorax, stable angina, unstable angina pectoris, atypical chest pain, st elevation myocardial infarction, costochondritis and chest pain Condition is:: Improved Condition is at treatment goal?: Yes Lab Data Attestation: I reviewed the patient's lab results. Result diagrams: 11/11/22 20:40 11/11/22 20:40 Labs: Lab Results 11/11/22 11/11/22 11/11/22 Range/Units 20:40 20:40 20:40 WBC 10.5 (4.5-11.0) X10^3/uL RBC 4.86 (4.0-5.2) X10^6/uL Hgb 15.4 (12.0-16.0) g/dL Hct 44.8 (36-46) % MCV 92.2 (80-100) fL MCH 31.6 (26-34) PG MCHC 34.3 (30-36) % RDW 13.9 (11.6-14.8) % Plt Count 352 (150-400) X10^3/uL Neut % (Auto) 62.2 (50-75) % Lymph % (Auto) 29.2 (25-40) % [place] % (Auto) 7.0 (3-14) % Eos % (Auto) 0.7 L (2-4) % Baso % (Auto) 0.9 (0-2) % Neut # (Auto) 6500 (9482-7102) /uL Lymph # (Auto) 3100 (0860-7664) /uL [place] # (Auto) 700 (0-900) /uL Eos # (Auto) 100 (0-450) /uL Baso # (Auto) 100 (0-100) /uL PT 11.3 (10.1-12.7) SECONDS INR 1.0 (0.9-1.3) APTT 31 (26-36) SECONDS Sodium 138 (137-145) mmol/L Potassium 3.8 (3.4-5.1) mmol/L Chloride 105 (98-107) mmol/L Carbon Dioxide 22 (22-32) mmol/L BUN 11 (7-17) mg/dL Creatinine 0.98 (0.52-1.04) mg/dL Estimated GFR > 60 (>60) mL/min BUN/Creatinine Ratio 11.2 (6-22) Glucose 113 H (80-110) mg/dL Calcium 9.7 (8.4-10.2) mg/dL Magnesium 2.1 (1.6-2.3) mg/dL Total Bilirubin 0.7 (0.2-1.3) mg/dL AST 24 (14-36) IU/L ALT 21 (<35) IU/L Alkaline Phosphatase 52 (38-126) U/L Total Creatine Kinase 50 (30-135) U/L CK-MB (CK-2) TNP CK-MB (CK-2) Rel Index TNP Troponin I < 0.012 (0.01-0.034) ng/mL Total Protein 8.8 H (6.3-8.2) g/dL Albumin 4.9 (3.5-5.0) g/dL Globulin 3.9 (1.7-4.1) g/dL Albumin/Globulin Ratio 1.3 (1.0-2.8) Lipase 114 (23-300) U/L SARS-CoV-2 (PCR) (Negative) 11/11/22 11/11/22 Range/Units 20:50 22:46 WBC (4.5-11.0) X10^3/uL RBC (4.0-5.2) X10^6/uL Hgb (12.0-16.0) g/dL Hct (36-46) % MCV (80-100) fL MCH (26-34) PG MCHC (30-36) % RDW (11.6-14.8) % Plt Count (150-400) X10^3/uL Neut % (Auto) (50-75) % Lymph % (Auto) (25-40) % [place] % (Auto) (3-14) % Eos % (Auto) (2-4) % Baso % (Auto) (0-2) % Neut # (Auto) (8048-5351) /uL Lymph # (Auto) (9574-9428) /uL [place] # (Auto) (0-900) /uL Eos # (Auto) (0-450) /uL Baso # (Auto) (0-100) /uL PT (10.1-12.7) SECONDS INR (0.9-1.3) APTT (26-36) SECONDS Sodium (137-145) mmol/L Potassium (3.4-5.1) mmol/L Chloride (98-107) mmol/L Carbon Dioxide (22-32) mmol/L BUN (7-17) mg/dL Creatinine (0.52-1.04) mg/dL Estimated GFR (>60) mL/min BUN/Creatinine Ratio (6-22) Glucose (80-110) mg/dL Calcium (8.4-10.2) mg/dL Magnesium (1.6-2.3) mg/dL Total Bilirubin (0.2-1.3) mg/dL AST (14-36) IU/L ALT (<35) IU/L Alkaline Phosphatase (38-126) U/L Total Creatine Kinase 53 (30-135) U/L CK-MB (CK-2) TNP CK-MB (CK-2) Rel Index TNP Troponin I < 0.012 (0.01-0.034) ng/mL Total Protein (6.3-8.2) g/dL Albumin (3.5-5.0) g/dL Globulin (1.7-4.1) g/dL Albumin/Globulin Ratio (1.0-2.8) Lipase (23-300) U/L SARS-CoV-2 (PCR) Negative (Negative) Imaging Data Chest x-ray: Radiologist's Impression: [address] [id number] XRay Report Signed Patient: Brit Hendrix MR#: [id number] : 1960 Acct:[id number] Age/Sex: 62 / F Date of Service: 11/11/22 Loc: ED Accession Number: [id number] ?? Procedure: XR chest 1V Ordering Provider: Dakota Purdy D.O. PROCEDURE:? XR CHEST 1V ? INDICATIONS:? chest pain ? TECHNIQUE:? One view of the chest was acquired.? ? COMPARISON:? None. ? FINDINGS:? ? Surgical changes and devices:? None.? ? Lungs and pleura:? Lungs are clear.? No pleural effusions or pneumothorax.? ? Mediastinum:? Mediastinal contours appear normal.? Heart size is normal.? ? Bones and chest wall:? No suspicious bony lesions.? Overlying soft tissues appear unremarkable.? ? IMPRESSION:? ? 1.? No acute cardiopulmonary disease. ? ? ? Dictated by: Viet Mathias M.D. on 11/11/2022 at 21:06 ? ? Approved by: Viet Mathias M.D. on 11/11/2022 at 21:07?? ECG Data Attestation: I personally reviewed and interpreted this ECG as follows: Interpretation: Sinus rhythm Ventricular rate 86 Normal axis Normal QRS QTC [address] T wave changes MDM Narrative Medical decision making narrative: Low risk heart score. Troponins negative x2. Chest x-ray is unremarkable. EKG unremarkable. Patient states she does feel somewhat better after the Ativan. I have a suspicion that this is somewhat anxiety related given her presentation. Will send home with nausea medication. I have low suspicion for ACS. Low suspicion for pulmonary embolism or other infectious etiology. She was given strict return precautions. She expressed understanding and agreement. Discharge Plan Departure Patient Disposition: Home Clinical Impression: Chest pain, Anxiety Instructions: DI for Atypical Chest Pain, DI for Anxiety -- Adult Activity Restrictions/Additional Instructions: I do recommend that you continue to take all of your medications as directed. Contact your primary doctor for a follow-up. Return to the emergency department for any new symptoms. Prescriptions: New ondansetron 4 mg tablet,disintegrating 4 mg PO Q6H PRN (Reason: nausea and vomiting) Qty: 14 0RF No Action loratadine [Allergy Relief (loratadine)] 10 mg tablet 10 mg PO DAILY PRN pilocarpine HCl 5 mg tablet 5 mg PO TID PRN (Reason: dry mouth) Qty: 90 0RF liothyronine [Cytomel] 5 mcg tablet 5 mcg PO BID Qty: 180 3RF levothyroxine [Synthroid] 125 mcg tablet 125 mcg PO DAILY Qty: 90 3RF albuterol sulfate [Ventolin HFA] 90 mcg/actuation HFA aerosol inhaler 2 puff Inhalation Q4H PRN (Reason: bronchospasm) Qty: 1 2RF diphenhydramine HCl [Sleep Tablet (diphenhydramine)] 25 mg tablet 50 mg PO Q6H PRN (Reason: allergic reaction) Qty: 90 5RF Flovent HFA 110 mcg/actuation HFA aerosol inhaler 1 puff inhalation BID Qty: 12 5RF tizanidine 4 mg tablet 4 mg PO TID Qty: 270 3RF trazodone 50 mg tablet 100 mg PO BEDTIME PRN (Reason: insomnia) Qty: 60 0RF alprazolam 1 mg tablet 1 mg PO QID Qty: 120 0RF Rx Instructions: ([facility] Brand only if available) estradiol [Vivelle-Dot] 0.1 mg/24 hr patch semiweekly 1 patch Transdermal 2XW Qty: 8 11RF gabapentin [Neurontin] 300 mg capsule 300 mg PO BID PRN (Reason: Pain) Qty: 180 0RF Referrals: Quincy Mason, [Primary Care Provider] - Stand Alone Forms: Patient Portal/API
[2022-11-11 21:14] LABS: Troponin I < 0.012 ng/mL (0.01-0.034)
[2022-11-11] MEDS: ONDANSETRON 4 MG/2 ML INJ IV (21:30)
[2022-11-11] MEDS: LORazepam 2 MG/ML INJ 1 MG IV ×2 (21:30→22:03)
[2022-11-11 22:51] VITALS: PULSE 70; RESP 20
[2022-11-11 23:00] VITALS: PULSE 80; RESP 22; O2SAT 98
[2022-11-11 23:05] LABS: Creatine Kinase 53 U/L (30-135)
[2022-11-11 23:18] LABS: Troponin I < 0.012 ng/mL (0.01-0.034)
[2022-11-11 23:30] VITALS: PULSE 83; RESP 20
[2022-11-12] VITALS: PULSE 74; RESP 18
[2022-11-12 00:07] VITALS: BP 117/62; PULSE 72; RESP 18; RESP 20; TEMP 36.3; O2SAT 98
[2022-11-12 00:12] VITALS: BP 117/62; PULSE 68; O2SAT 99
[2022-11-12] MEDS: ONDANSETRON 4 MG ODT PREPACK 1 BOTTLE MISC (00:14)
== END 2022-11-12 00:22 | disposition home or self-care (01) ==
PROVIDERS: Emergency Provider Emergency Medicine; PCP Family Medicine
DX: R07.9 Chest pain, unspecified (principal); F41.9 Anxiety disorder, unspecified; Z20.822 Contact with and (suspected) exposure to COVID-19
CPT/HCPCS: 36415; 71045; 80053; 82550; 82553; 83690; 83735; 84484; 85025; 85610; 85730; 87635; 93005; 96374; 96375; 96376; 99284; C9803; J2060; J2405

== ENCOUNTER → 2022-11-13 13:02 | Outpatient (CLI) | payer OTHER, MEDICAID, SELFPAY ==
[2022-11-13 14:15] LABS: Free T4, Direct Thyroxine 1.67 ng/dL (0.78-2.19)
[2022-11-13 14:29] LABS: Thyroid Stimulating Hormone 0.031 uIU/mL (0.47-4.68)
== END ==
PROVIDERS: PCP Family Medicine; Referring Provider Nurse Practitioner Family; Visit Provider Nurse Practitioner Family
DX: E03.9 Hypothyroidism, unspecified (principal); F41.9 Anxiety disorder, unspecified
CPT/HCPCS: 36415; 84439; 84443

== ENCOUNTER → 2022-11-19 15:02 | Outpatient (CLI) | payer OTHER, MEDICAID, SELFPAY ==
[2022-11-19 15:41] LABS: Appearance Urine UA SL CLOUDY; Bilirubin Urine UA NEGATIVE (NEGATIVE); Color Urine UA YELLOW; Glucose Urine UA NEGATIVE (Negative); Ketones Urine UA NEGATIVE (NEGATIVE); Leukocyte Esterase Urine UA 1+ (NEGATIVE); Nitrite Urine UA NEGATIVE (Negative); Occult Blood Urine UA TRACE-INTACT (Negative); Protein Urine UA NEGATIVE (Negative); Specific Gravity Urine UA 1.025 (1.000-1.035); Urobilinogen Urine UA 0.2 E.U./dL (0.2)
[2022-11-19 15:50] LABS: pH Urine UA 5.5 (4.5-8.0)
[2022-11-19 15:51] LABS: Amorphous Sediment Urine 1+; Bacteria Urine Moderate (10-30); Culture Indicated Urine Specimen Cultured; RBC Urine None Seen (0-5/HPF); Squamous Epithelial Cell Urine 10-30 /HPF (0-5/HPF); WBC Urine 10-30/HPF (0-5/HPF)
== END ==
PROVIDERS: PCP Family Medicine; Referring Provider Family Medicine; Visit Provider Family Medicine
DX: R30.0 Dysuria (principal)
CPT/HCPCS: 81001; 87077; 87086; 87186

== ENCOUNTER → 2022-12-13 13:19 | Outpatient (CLI) | payer OTHER, MEDICAID, SELFPAY ==
--- NOTE | 2022-12-13 13:20 | DI.US.S_ITS ---
PROCEDURE: US ABDOMEN COMPLETE INDICATIONS: ABDOMINAL PAIN TECHNIQUE: Real-time scanning was performed of the abdominal and retroperitoneal organs, with image documentation. COMPARISON: [facility], US, US ABDOMEN COMPLETE, 12/21/2020, 14:34. FINDINGS: Liver: Liver is normal in size and homogeneous in echotexture. Gallbladder: No findings of gallstones or sludge are seen. The gallbladder wall is not thickened, measuring 3 mm or less. No specific pericholecystic fluid is seen. The sonographic Payton sign is negative. Biliary ducts: Intrahepatic bile ducts are non-dilated. Extrahepatic bile duct caliber measures 5 mm. Normal is 6-7 mm or less in diameter, or 10 mm or less post-cholecystectomy. Pancreas: Visualized portions of the pancreas are sonographically normal. Spleen: Spleen is normal in size and homogeneous in echotexture. Kidneys: Kidneys are normal in size and echotexture. Right kidney measures 10.2 cm long; left kidney measures 11.7 cm long. No hydronephrosis or nephrolithiasis. No solid masses. Aorta: Visualized aorta is normal in caliber at less than 3 cm. Iliacs: Proximal common iliac arteries are normal in caliber at less than 2.5 cm. IVC: Intrahepatic inferior vena cava is patent. Miscellaneous: No free abdominal fluid. IMPRESSION: The gallbladder demonstrates a normal sonographic appearance. No biliary dilatation is seen. Dictated by: Bhanu Michael M.D. on 12/13/2022 at 17:26 Approved by: Bhanu Michael M.D. on 12/13/2022 at 17:27
--- NOTE | 2022-12-13 13:20 | DI.MG.S_ITS ---
BILATERAL DIGITAL SCREENING MAMMOGRAM 3D/2D WITH CAD: 12/13/2022 CLINICAL: Routine screening. Family history of breast cancer. Comparison is made to exams dated: 12/22/2019 mammogram, 05/10/2017 mammogram - [facility], and 01/23/2011 mammogram - [facility]. There are scattered areas of fibroglandular density in both breasts (category b / 25%-50% glandular tissue). Current study was also evaluated with a Computer Aided Detection (CAD) system. No significant masses, calcifications, or other findings are seen in either breast. IMPRESSION: NEGATIVE There is no mammographic evidence of malignancy. A 1 year screening mammogram is recommended. Based on the Tyrer Cuzick model (a risk assessment model) the patient's lifetime risk is 9.3% and her 10 year risk is 3.8%. According to the ACR, ACS, and NCCN guidelines, an annual breast MRI exam along with mammogram is recommended if the patient's lifetime risk is 20% or greater. This exam was interpreted at Station ID: [id number]. NOTE: For mammograms, a report in lay terms will be sent to the patient. Approximately 15% of breast malignancies will not be visualized mammographically. In the management of a palpable breast mass, a negative mammogram must not discourage biopsy of a clinically suspicious lesion. Electronically Signed By: Cl Menjivar M.D., jr/jennifer:12/13/2022 14:56:29 letter sent: Normal Exam ACR BI-RADS Category 1: Negative 3341F
--- NOTE | 2022-12-13 14:19 | PM.TREADMILL ---
Cardiac Stress Test Report Referral & Results Date Patient Seen: 12/13/22 Requesting provider: Quincy Mason Indication: Palpitations and chest pain Rest ECG: Unremarkable Procedure Note: Today following both written and verbal informed consent, the patient was exercised according to a standard Truman protocol. The patient exercised for a total of 7 minutes 58 seconds achieving a maximum heart rate of 147. Patient's maximum systolic blood pressure was 175. This was an estimated 10.1 MET's. There were no ST-T segment changes Patient had rare PVCs and PACs Function aerobic impairment rates about-15-20 20% on the active scale or 15-20% better than average Impression: No evidence of ischemia Excellent exercise capacity Please note: Actual ECG tracings can be found in the PACS system.
--- NOTE | 2022-12-13 14:53 | DI.ECHO.S_ITS ---
Interpretation Summary The left ventricle is normal in size and wall thickness. The ejection fraction is estimated to be 60-65%. The right ventricle is normal in size and function. There is mild to moderate mitral regurgitation. The IVC is of normal diameter and collapses greater than 50% with a sniff. This suggests a low right atrial pressure of 3 mm Hg. Procedure: A two-dimensional transthoracic echocardiogram with color flow and Doppler was performed. The study quality was technically adequate. The patient was in sinus rhythm with heart rates between 69-75 bpm during the exam. Left Ventricle: The left ventricle is normal in size and wall thickness. There is no thrombus. The ejection fraction is estimated to be 60-65%. There are no focal wall motion abnormalities. MV E/A: 1.2 Med Peak E' Gregg: 9.3 cm/sec E/E' med: 10.1. Right Ventricle: The right ventricle is normal in size and function. Atria: The left atrial size is normal. Right atrial size is normal. There is no Doppler evidence for an interatrial shunt. Mitral Valve: The mitral valve leaflets appear mildly thickened, but open well. There is mild to moderate mitral regurgitation. Aortic Valve: The aortic valve is trileaflet. The aortic valve opens well. There is no aortic valve stenosis. No aortic regurgitation is present. Tricuspid Valve: The tricuspid valve is normal. There is mild tricuspid regurgitation. Pulmonary artery pressures cannot be estimated because of the lack of a measurable TR jet velocity. Pulmonic Valve: The pulmonic valve leaflets are thin and pliable; valve motion is normal. There is no pulmonic valvular regurgitation. Great Vessels: The aortic root is normal size. The ascending aorta is normal in size. The pulmonary artery is normal size. The IVC is of normal diameter and collapses greater than 50% with a sniff. This suggests a low right atrial pressure of 3 mm Hg. Pericardium/ Pleura There is no pericardial effusion. There is an anterior echo-free space consistent with a fat pad. There is no pleural effusion. MMode/2D Measurements & Calculations LVIDd: 4.4 cm LVOT diam: 1.8 cm LVIDs: 2.6 cm Ao root diam: 2.8 cm FS: 40.9 % asc Aorta Diam: 3.2 cm EPSS: 0.50 cm IVSd: 0.60 cm LVPWd: 0.60 cm LV antonio. diameter/BSA (cm/m^2): 2.4 LV sys. diameter/BSA (cm/m^2): 1.4 LA dimension: 3.1 cm RA long axis: 3.7 cm LA A2 area: 14.5 cm2 RA area: 10.2 cm2 LA A4 area: 13.3 cm2 RA vol: 23.8 ml LA length (vol): 4.7 cm RA : 13.2 ml/m2 LA vol: 35.0 ml IVC diam: 1.5 cm LA vol index: 19.4 ml/m2 RVD1 (basal): 3.4 cm LVLs ap4: 5.6 cm LVLd ap2: 7.3 cm TAPSE_phl: 2.4 cm LVLs ap2: 5.7 cm Doppler Measurements & Calculations Ao V2 max: 117.0 cm/sec LVOT Max Gregg: 119.0 cm/sec Ao V2 mean: 84.8 cm/sec LV V1 max P.7 mmHg Ao max P.0 mmHg LV V1 VTI: 24.3 cm Ao mean P.0 mmHg ELVIA(I,D): 2.5 cm2 Ao V2 VTI: 25.2 cm ELVIA(V,D): 2.6 cm2 sev ratio: 0.96 ELVIA indexed to BSA (cm^2/m^2): 1.4 MV E max gregg: 93.8 cm/sec TR max gregg: 187.0 cm/sec MV A max gregg: 77.1 cm/sec TR max P.0 mmHg MV E/A: 1.2 PA V2 max: 92.7 cm/sec Med Peak E' Gregg: 9.3 cm/sec PA V2 mean: 63.6 cm/sec E/E' med: 10.1 PA mean P.0 mmHg Lat Peak E' Gregg: 10.0 cm/sec E/E' lat: 9.4 E/e' average: 9.8 MV dec time: 0.17 sec MVA(VTI): 2.5 cm2 MV V2 mean: 64.2 cm/sec SV(LVOT): 61.8 ml MV mean P.0 mmHg MV V2 VTI: 24.3 cm AV VR_phl: 1.0 MV P1/2t-pr_phl: 49.0 msec ELVIA(VTI)/BSA_phl: 1.4 Reading Physician:03:56 PM
== END ==
PROVIDERS: PCP Family Medicine; Referring Provider Family Medicine; Visit Provider Family Medicine
DX: Z80.3 Family history of malignant neoplasm of breast (principal); I08.1 Rheumatic disorders of both mitral and tricuspid valves; R07.9 Chest pain, unspecified; Z12.31 Encounter for screening mammogram for malignant neoplasm of breast; R00.2 Palpitations; F41.9 Anxiety disorder, unspecified; R10.9 Unspecified abdominal pain
CPT/HCPCS: 76700; 77063; 77067; 93016; 93017; 93018; 93306

== ENCOUNTER → 2023-03-19 19:11 | Outpatient (CLI) | payer OTHER, MEDICAID, SELFPAY ==
--- NOTE | 2023-03-19 19:15 | DI.MRI.S_ITS ---
PROCEDURE: MR HEAD/BRAIN WO/W CON INDICATIONS: F/U possible MS TECHNIQUE: Noncontrast axial T1 spin echo, axial T2 fast spin echo, sagittal and axial FLAIR, coronal T2 fast spin echo, axial gradient echo, axial diffusion and ADC through the brain. After the administration of contrast, axial and coronal and sagittal T1 spin echo with fat saturation through the brain. COMPARISON: [facility], , MRI BRAIN WITHOUT CONTRAST, 04/01/2009, 15:58. FINDINGS: Image quality: Excellent. CSF spaces: Basal cisterns are patent. No extra-axial fluid collections. Ventricles are normal in size and shape. Brain: No midline shift. No intracranial bleeds or masses. No abnormal intracranial enhancement. There is cerebral volume loss for age. There is a minimal degree of patchy high FLAIR signal within the periventricular white matter, which is not significantly changed. The brainstem appears normal. Diffusion-weighted images demonstrate no acute ischemic insults. No chronic ischemic insults. Normal intravascular flow voids are present. Skull and face: Calvarial marrow is normal in signal. Orbits appear normal. Sinuses: Sinuses and mastoids appear clear. IMPRESSION: 1. No significant change in minimal degree of periventricular white matter disease, with differential considerations including small vessel ischemic disease, diabetes mellitus, vasculitides, and demyelinating disorders, such as multiple sclerosis. 2. No acute process. No recent infarct. Dictated by: Olayinka Lizama M.D. on 03/20/2023 at 13:41 Approved by: Olayinka Lizama M.D. on 03/20/2023 at 13:42
== END ==
PROVIDERS: PCP Family Medicine; Referring Provider Family Medicine; Visit Provider Family Medicine
DX: R90.0 Intracranial space-occupying lesion found on diagnostic imaging of central nervous system (principal)
CPT/HCPCS: 70553; A9579

== ENCOUNTER → 2024-01-15 15:23 | Outpatient (CLI) | payer OTHER, MEDICAID, SELFPAY ==
--- NOTE | 2024-01-15 | DI.MG.S_ITS ---
BILATERAL DIGITAL SCREENING MAMMOGRAM 3D/2D WITH CAD: 01/15/2024 CLINICAL: Routine screening. Family history of breast cancer. Comparison is made to exams dated: 12/13/2022 mammogram, 12/22/2019 mammogram, and 05/10/2017 mammogram - [facility]. Both breasts are heterogeneously dense, which may obscure small masses (category c / 51-75% glandular tissue). Current study was also evaluated with a Computer Aided Detection (CAD) system. There are benign calcifications in both breasts. No significant masses, calcifications, or other findings are seen in either breast. There has been no significant interval change. IMPRESSION: BENIGN There is no mammographic evidence of malignancy. A 1 year screening mammogram is recommended. Based on the Tyrer Cuzick model (a risk assessment model) the patient's lifetime risk is 12.0% and her 10 year risk is 5.1%. According to the ACR, ACS, and NCCN guidelines, an annual breast MRI exam along with mammogram is recommended if the patient's lifetime risk is 20% or greater. This exam was interpreted at Station ID: [id number]. NOTE: For mammograms, a report in lay terms will be sent to the patient. Approximately 15% of breast malignancies will not be visualized mammographically. In the management of a palpable breast mass, a negative mammogram must not discourage biopsy of a clinically suspicious lesion. Electronically Signed By: Alexis ivan/jennifer:01/16/2024 13:02:21 letter sent: Normal Exam ACR BI-RADS Category 2: Benign Finding(s) 3342F
== END ==
PROVIDERS: PCP Family Medicine; Referring Provider Family Medicine; Visit Provider Family Medicine
DX: Z12.31 Encounter for screening mammogram for malignant neoplasm of breast (principal); R92.333 Mammographic heterogeneous density, bilateral breasts
CPT/HCPCS: 77063; 77067

== ENCOUNTER → 2024-05-27 10:31 | Outpatient (CLI) | payer OTHER, MEDICAID, SELFPAY ==
[2024-05-27 12:21] LABS: Add Manual Diff / Slide Review NO; Basophils Absolute Auto 100 /uL (0-100); Basophils Percent Auto 1.1 % (0-2); Eosinophils Absolute Auto 300 /uL (0-450); Eosinophils Percent Auto 4.8 % (2-4); Hematocrit 39.6 % (36-46); Hemoglobin 13.4 g/dL (12.0-16.0); Lymphocytes Absolute Auto 1700 /uL (1100-4500); Lymphocytes Percent Auto 28.6 % (25-40); Mean Corpuscular HGB Conc 33.9 % (30-36); Mean Corpuscular Hemoglobin 30.9 PG (26-34); Mean Corpuscular Volume 90.9 fL (80-100); Monocytes Absolute Auto 400 /uL (0-900); Monocytes Percent Auto 6.5 % (3-14); Neutrophils Absolute Auto 3600 /uL (1500-7000); Platelet Count 286 X10^3/uL (150-400); Red Blood Cell Count 4.35 X10^6/uL (4.0-5.2); Red Cell Distribution Width 13.8 % (11.6-14.8); White Blood Cell Count 6.1 X10^3/uL (4.5-11.0)
[2024-05-27 12:55] LABS: Albumin 4.1 g/dL (3.5-5.0); Albumin Globulin Ratio 1.3 (1.0-2.8); Aspartate Aminotransferase 27 IU/L (14-36); BUN Creatinine Ratio 9.7 (6-22); Blood Urea Nitrogen 11 mg/dL (7-17); Calcium 9.4 mg/dL (8.4-10.2); Carbon Dioxide 26 mmol/L (22-32); Cholesterol 302 mg/dL (140-199); Estimated Glomerular Filt Rate 55 mL/min (>60); Globulin 3.1 g/dL (1.7-4.1); Glucose 90 mg/dL (80-110); HEMOLYSIS < 15 (0-50); Total Protein 7.2 g/dL (6.3-8.2); Triglycerides 71 mg/dL (35-150)
[2024-05-27 13:58] LABS: Alanine Aminotransferase 21 IU/L (<35); Alkaline Phosphatase 34 U/L (38-126); Bilirubin Total 0.5 mg/dL (0.2-1.3); Chloride 104 mmol/L (98-107); HDL Cholesterol 99 mg/dL (40-60); LDL Cholesterol Calculated 189 mg/dL (<100); Potassium 4.8 mmol/L (3.4-5.1); Sodium 137 mmol/L (137-145)
[2024-05-27 14:16] LABS: Free T4, Direct Thyroxine 1.08 ng/dL (0.78-2.19)
[2024-05-27 14:30] LABS: Thyroid Stimulating Hormone 0.537 uIU/mL (0.47-4.68)
== END ==
PROVIDERS: PCP Family Medicine; Referring Provider Family Medicine; Visit Provider Family Medicine
DX: E78.5 Hyperlipidemia, unspecified (principal); M79.7 Fibromyalgia; E03.9 Hypothyroidism, unspecified
CPT/HCPCS: 36415; 80053; 80061; 84439; 84443; 85025

== ENCOUNTER 2024-12-05 20:16 | Emergency (ER) | payer OTHER, SELFPAY ==
[2024-12-05] VITALS (12 sets, daily range): BP systolic 107–145; BP diastolic 66–72; PULSE 54–79; RESP 16–20; TEMP 36.5; O2SAT 94–99
--- NOTE | 2024-12-05 20:24 | DI.RAD.S_ITS ---
PROCEDURE: XR CHEST 2V INDICATIONS: cough/sob TECHNIQUE: 2 views of the chest were acquired. COMPARISON: [facility], CR, XR CHEST 1V, 11/11/2022, 20:43. FINDINGS: Surgical changes and devices: None. Lungs and pleura: Lungs are clear. No pleural effusions or pneumothorax. Mediastinum: Mediastinal contours are normal. Heart size is normal. Bones and chest wall: No suspicious bony abnormalities. Soft tissues appear unremarkable. IMPRESSION: No acute cardiopulmonary abnormality is seen. Dictated by: Gaetano Churchill M.D. on 12/05/2024 at 20:53 Approved by: Gaetano Churchill M.D. on 12/05/2024 at 20:54
--- NOTE | 2024-12-05 20:28 | EKG_ITS ---
[address] [address] Test Date: 2024-12-05 Pat Name: Brit Hendrix Department: Room: Gender: Female Concrete Paver: RODOLFO : 1960 Requested By: Order Number: [id number] Reading MD: Talon Haji MD Measurements Intervals [place] Rate: 57 P: 34 MS: 162 QRS: 21 QRSD: 82 T: 61 QT: 492 QTc: 478 Interpretive Statements Sinus bradycardia Electronically Signed On 12-06-2024 8:48:39 PST by Talon Haji MD
[2024-12-05] MEDS: ALBUTEROL/IPRATROPIUM 3 ML AMPUL INH (20:31)
[2024-12-05 21:13] LABS: Influenza A - CEPHEID Flu A NEGATIVE (NEGATIVE); Influenza B - CEPHEID Flu B NEGATIVE (NEGATIVE); Respiratory Syncytial Virus Negative (Negative)
[2024-12-05 21:16] LABS: COVID-19 CEPHEID 4-PLEX PCR Negative (Negative)
--- NOTE | 2024-12-05 22:08 | ED.GENADULT ---
HPI - General Adult General Chief complaint: Upper Respiratory Symptoms Stated complaint: SOB, chest cold Time Seen by Provider: 12/05/24 22:08 Source: patient, RN notes reviewed and old records reviewed Mode of arrival: Ambulatory Limitations: no limitations History of Present Illness HPI narrative: 64-year-old female history of intermittent asthma, hay fever, hypothyroidism, anxiety, CKD stage 3 presents with complaint of recent upper respiratory illness. Patient states had recent upper respiratory symptoms had little bit of sore throat which resolved after day nasal congestion which has been continuing but improving and then had increasing shortness of breath over the past 2 or 3 days. Patient states she felt a little bit of chest tightness. She felt like she was drowning earlier today which prompted her to come in. Patient states she feels much improved after a nebulizer although still has a little bit tight. No chest pain or pressure. No nausea or vomiting. No diarrhea or constipation. No urinary symptoms. No new swelling of her extremities. Was using her inhaler she was unsure how many times started using it last night, she states doing 2 puffs. Does not having improvement. Does not have a spacer. Has not ever cried admission. Has not had to come to the ER for her asthma in the past. She states she has run out of her albuterol. Has a prescription for a steroid inhaler but could not find it has not been using it regularly. She states typically her asthma has kicked off by environmental allergies. States he takes Prozac, albuterol PRN, Synthroid, gabapentin, trazodone, alprazolam, tizanidine and Benadryl as needed for allergies. Has had a prior hysterectomy in 2005, prior tonsillectomy. No tobacco, alcohol weekly, no recreational drugs. Related Data Previous Rx's Medication Instructions Recorded Disabled Parking Permint #1 ea 05/27/23 hydroxyzine HCl 25 mg tablet 25 mg PO QID PRN anxiety #120 tabs 07/08/23 loratadine 10 mg tablet (Allergy 10 mg PO DAILY PRN allergy 12/26/23 Relief (loratadine)) symptoms #30 tabs Cytomel 5 mcg tablet (liothyronine) 5 mcg PO BID #60 tabs 06/30/24 Synthroid 125 mcg tablet 125 mcg PO DAILY #30 tabs 06/30/24 (levothyroxine) pilocarpine HCl 5 mg tablet 5 mg PO TID PRN dry mouth #90 tabs 08/05/24 diphenhydramine HCl 25 mg capsule 50 mg (2 x 25 mg) PO Q6H PRN 09/02/24 allergic reaction #90 caps estradiol 0.1 mg/24 hr semiweekly 1 patch transdermal 2XW #8 ea 09/15/24 transdermal patch (Vivelle-Dot) gabapentin 300 mg capsule 600 mg (2 x 300 mg) PO TID PRN 09/21/24 (Neurontin) Pain #180 caps tizanidine 4 mg tablet 4 mg PO TID #270 tabs 09/21/24 alprazolam 1 mg tablet 1 mg PO BID #90 tabs 10/06/24 Prozac 20 mg capsule (fluoxetine) 60 mg (3 x 20 mg) PO DAILY #90 caps 10/19/24 albuterol sulfate 90 mcg/actuation 2 puff inhalation Q4H PRN 10/27/24 aerosol inhaler (Ventolin HFA) bronchospasm #1 inh fluticasone propionate 110 See Rx Instructions .Route 10/27/24 mcg/actuation HFA aerosol inhaler .COMPLEX #12 grams trazodone 50 mg tablet 150 mg (3 x 50 mg) PO BEDTIME PRN 12/03/24 insomnia #90 tabs albuterol sulfate 90 mcg/actuation 2 inh inhalation Q4-6H PRN 12/05/24 breath activated powder inhaler shortness of breath or wheezing #1 ea fluticasone 250 mcg-salmeterol 50 1 inh inhalation BID #60 ea 12/05/24 mcg/dose blistr powdr for inhalation (Advair Diskus) prednisone 10 mg tablets in a dose See Rx Instructions PO .COMPLEX 12/05/24 pack #21 ea Allergies Allergy/AdvReac Type Severity Reaction Status Date / Time Penicillins [PENICILLINS] Allergy Intermediate HIVES Verified 05/29/24 16:37 Sulfa (Sulfonamide Allergy Intermediate HIVES Verified 05/29/24 16:37 Antibiotics) ciprofloxacin AdvReac Intermediate joint Verified 05/29/24 16:37 pain, abdominal pain Review of Systems Review of Systems ROS Unobtainable: All systems reviewed & are unremarkable except as noted in HPI and below Patient History Medical History Insomnia Palpitations Overweight (BMI 25.0-29.9) Elevated LFTs Chronic kidney disease (CKD) stage G3a/A1, moderately decreased glomerular filtration rate (GFR) between 45-59 mL/min/1.73 square meter and albuminuria creatinine ratio less than 30 mg/g Osteopenia after menopause Edentulous Hypothyroidism Asthma (~1967) Seasonal allergies Abnormal chest x-ray (~2005) Agoraphobia ADD (attention deficit disorder) PTSD (post-traumatic stress disorder) Depression Anxiety Anorexia nervosa (~1975) Raynaud's disease Seizure (~1988) Migraines (~1983) History of frequent headaches ADHD (attention deficit hyperactivity disorder) Shoulder pain History of toe fracture (~2012) History of wrist fracture (~2012) History of ankle fracture (~1973) Fibromyalgia Ankle pain (~1997) Eczema Chickenpox Measles (~1971) Rubella Anemia Tinnitus Painful menstrual periods Ovarian cyst Irregular menstrual cycle Oral herpes Chlamydia (~1983) IBS (irritable bowel syndrome) (~1978) Hemorrhoids (~1983) Colon polyps (~1998) Adenomatous polyp of colon (06/17/17) Surgical History Anesthesia History of corrected cleft lip and palate (~1962) History of bladder suspension procedure Status post hysterectomy with oophorectomy (~2005) Status post tonsillectomy and adenoidectomy (~1996) Family History Father Mental health problem Colon cancer Grandfather Heart disease Grandmother Cancer Stroke Sister Age: 69 Mental health problem Grandfather No problems noted. Grandmother Old age Brother FH: prostate cancer Social History marital status: household members: spouse occupational status: disabled Smoking Status: Never smoker alcohol intake: current substance use type: does not use Smoking Status: Never smoker alcohol intake frequency: a few times a week Exam Narrative Exam Narrative: GENERAL: Alert and oriented x three, female in mild distress HEENT: Head normocephalic, atraumatic, EOMI, pupils reactive, positive for nasal congestion, face symmetric, moist mucous membranes NECK: Supple, full range of motion CARDIOVASCULAR: Regular rate and rhythm without murmurs, rubs or gallops. RESPIRATORY: Breath sounds equal bilaterally, patient has expiratory wheeze bilaterally in upper and lower, patient does have good air movement, no tachypnea accessory muscle use. No crackles, no rhonchi. Occasional dry cough. ABDOMEN: Soft, nontender. Normoactive bowel sounds all 4 quadrants. No guarding or rebound, rigidity, no mass : No CVA tenderness EXTREMITIES: Normal range of motion, no clubbing or edema. Neurovascularly intact. No edema bilateral lower extremities. NEUROLOGICAL: Cranial nerves II through XII grossly intact. Moving all extremities SKIN: Warm, dry, no petechiae, no rashes or lesions. Initial Vital Signs Initial Vital Signs: Vital Signs Pulse Oximetry 97 12/05/24 20:21 Course Orders Ordered: ED Orders 12/05/24 20:24 XR chest 2V Stat 12/05/24 20:25 RT Consult Eval and Treat NOW 12/05/24 20:27 Covid-19 + FLU A/B + RSV - PCR Stat 12/05/24 20:28 CBC Auto Diff [Complete Blood Count AUTO DIFF] Stat CMP [Comprehensive Metabolic Panel] Stat Troponin & CK Cardiac Panel Stat EKG-12 Lead Stat Discontinued Medications Albuterol (Albuterol 2.5 Mg/3 Ml Neb (Adult)) 5 mg INH NOW ONE Stop: 12/05/24 22:25 Last Admin: 12/05/24 22:30 Dose: 5 mg Documented By: Albuterol (Albuterol Hfa Prepack) 1 box MISC DIRECTED ONE Stop: 12/05/24 23:47 Last Admin: 12/05/24 23:53 Dose: 1 box Documented By: FUNMI Albuterol/Ipratropium (Albuterol/Ipratropium 3 Ml Ampul) 3 ml INH NOW ONE Stop: 12/05/24 20:27 Last Admin: 12/05/24 20:31 Dose: 3 ml Documented By: Methylprednisolone (Methylprednisolone 125 Mg/2 Ml Vial) 125 mg IV NOW ONE Stop: 12/05/24 22:25 Last Admin: 12/05/24 22:27 Dose: 125 mg Documented By: FUNMI Vital Signs Vital signs: Vital Signs - 8 hr 12/05/24 21:30 12/05/24 22:00 12/05/24 22:06 Pulse Rate 69 71 Respiratory Rate 20 Blood Pressure 133/66 133/66 Pulse Oximetry 96 98 Oxygen Delivery Method Room Air 12/05/24 22:06 12/05/24 22:30 12/05/24 22:30 Pulse Rate 65 61 Respiratory Rate 18 Blood Pressure 129/69 Pulse Oximetry 97 97 Oxygen Delivery Method 12/05/24 23:00 12/05/24 23:00 12/05/24 23:30 Pulse Rate 79 78 Respiratory Rate Blood Pressure 134/72 Pulse Oximetry 99 94 Oxygen Delivery Method Room Air 12/05/24 23:30 Pulse Rate Respiratory Rate Blood Pressure 145/67 H Pulse Oximetry Oxygen Delivery Method Medical Decision Making Lab Data 12/05/24 20:28 12/05/24 20:28 Labs: Lab Results 12/05/24 12/05/24 Range/Units 20:27 20:28 WBC 6.0 (4.5-11.0) X10^3/uL RBC 4.16 (4.0-5.2) X10^6/uL Hgb 13.1 (12.0-16.0) g/dL Hct 38.5 (36-46) % MCV 92.5 (80-100) fL MCH 31.4 (26-34) PG MCHC 33.9 (30-36) % RDW 13.7 (11.6-14.8) % Plt Count 229 (150-400) X10^3/uL Neut % (Auto) 55.1 (50-75) % Lymph % (Auto) 28.6 (25-40) % Mck[place] % (Auto) 9.5 (3-14) % Eos % (Auto) 5.7 H (2-4) % Baso % (Auto) 1.1 (0-2) % Neut # (Auto) 3300 (2177-2224) /uL Lymph # (Auto) 1700 (0165-4802) /uL [place] # (Auto) 600 (0-900) /uL Eos # (Auto) 300 (0-450) /uL Baso # (Auto) 100 (0-100) /uL Sodium 137 (137-145) mmol/L Potassium 4.3 (3.4-5.1) mmol/L Chloride 105 (98-107) mmol/L Carbon Dioxide 27 (22-32) mmol/L BUN 18 H (7-17) mg/dL Creatinine 1.13 H (0.52-1.04) mg/dL Estimated GFR 55 L (>60) mL/min BUN/Creatinine Ratio 15.9 (6-22) Glucose 82 (80-110) mg/dL Calcium 9.1 (8.4-10.2) mg/dL Total Bilirubin 0.3 (0.2-1.3) mg/dL AST 75 H (14-36) IU/L ALT 45 H (<35) IU/L Alkaline Phosphatase 40 (38-126) U/L Total Creatine Kinase 51 (30-135) U/L Troponin I < 0.012 (0.01-0.034) ng/mL Total Protein 7.2 (6.3-8.2) g/dL Albumin 4.1 (3.5-5.0) g/dL Globulin 3.1 (1.7-4.1) g/dL Albumin/Globulin Ratio 1.3 (1.0-2.8) SARS-CoV-2 (PCR) Negative (Negative) Influenza A (RT-PCR) Flu a negative (NEGATIVE) Influenza B (RT-PCR) Flu b negative (NEGATIVE) RSV (PCR) Negative (Negative) ECG Data Attestation: I personally reviewed and interpreted this ECG as follows: Prior ECG tracings: available for review Interpretation: EKG shows sinus bradycardia rate of 57 MT 162 QRS 82 QTC of [address] elevation or depression. Patient has prior from 11/11/2022 nonspecific change. MDM Narrative Medical decision making narrative: 64-year-old female history of asthma recent URI with increasing shortness of breath. Was using her albuterol may have run out does have a history of steroid inhaler but is not using. On exam she was wheezy although she had received a DuoNeb and does feel better. We will give some additional albuterol and solumedrol. Patient's COVID/influenza RSV is negative but suspect upper respiratory infection prompting her symptoms. EKG shows sinus bradycardia chest x-ray is clear. Patient was quite anxious about having anemia and her renal function so labs were added on. Chest x-ray shows no acute change. EKG shows sinus bradycardia rate of 57 MT 162 QRS 82 QTC of [address] elevation or depression. COVID/influenza/RSV is negative Patient received DuoNeb, Albuterol and Solumedrol. RT gave spacer along with teaching. Patient feels much better after additional albuterol. Scant wheeze. Discussed with patient we will continue with oral prednisone taper, we will refill her albuterol discussed refilling her steroid inhaler but did recommend she uses this regularly. Discussed return precautions. Discharge Plan Departure Patient Disposition: Home Clinical Impression: Asthma exacerbation, Upper respiratory infection Instructions: Asthma -- Adult Activity Restrictions/Additional Instructions: Follow up for recheck with your physician if your symptoms are mild but persisting. Take oral steroids until completed. A prescription for Advair or a steroid inhaler was sent. Use 1 puff twice daily whether you feel good or bad regardless of your symptoms. Use albuterol with a spacer, you can do 2 puffs every 4-6 hours. If you feel very tight you can use 4-8 puffs if necessary. If you need your albuterol more than every 4 hours you should be evaluated. If you are having a lot of nasal congestion and oral antihistamine such as Benadryl every 6 hours or loratadine or Zyrtec daily may be helpful. Prescription sent to [facility] in [place]. Please return if you develop fevers, new or worsening chest pain or shortness of breath, if you are not responding to your albuterol, increasing shortness of breath or work of breathing, lightheadedness or passing out, vomiting, new swelling of your extremities or other new or concerning changes Prescriptions: New prednisone 10 mg tablets,dose pack See Rx Instructions .ROUTE .COMPLEX Qty: 21 0RF Rx Instructions: 6 tabs p.o. x1 day, then 5 tabs p.o. x1 day, then 4 tablets p.o. x1 day, then 3 tabs p.o. x1 day, then 2 tabs p.o. x1 day, then 1 tab p.o. x1 day albuterol sulfate 90 mcg/actuation aerosol powdr breath activated 2 inh inhalation Q4-6H PRN (Reason: shortness of breath or wheezing) Qty: 1 0RF fluticasone propion-salmeterol [Advair Diskus] 250-50 mcg/dose blister with device 1 inh inhalation BID Qty: 60 0RF No Action hydroxyzine HCl 25 mg tablet 25 mg PO QID PRN (Reason: anxiety) Qty: 120 3RF alprazolam 1 mg tablet 1 mg PO BID Qty: 90 2RF Rx Instructions: Take 0.5 mg (1/2 tab) twice a day and take 2 mg (2 tabs) at night loratadine [Allergy Relief (loratadine)] 10 mg tablet 10 mg PO DAILY PRN (Reason: allergy symptoms) Qty: 30 3RF liothyronine [Cytomel] 5 mcg tablet 5 mcg PO BID Qty: 60 6RF levothyroxine [Synthroid] 125 mcg tablet 125 mcg PO DAILY Qty: 30 6RF pilocarpine HCl 5 mg tablet 5 mg PO TID PRN (Reason: dry mouth) Qty: 90 0RF diphenhydramine HCl 25 mg capsule 50 mg PO Q6H PRN (Reason: allergic reaction) Qty: 90 5RF estradiol [Vivelle-Dot] 0.1 mg/24 hr patch semiweekly 1 patch Transdermal 2XW Qty: 8 6RF gabapentin [Neurontin] 300 mg capsule 600 mg PO TID PRN (Reason: Pain) Qty: 180 1RF tizanidine 4 mg tablet 4 mg PO TID Qty: 270 3RF fluoxetine [Prozac] 20 mg capsule 60 mg PO DAILY Qty: 90 2RF Rx Instructions: Take with food Flovent HFA 110 mcg/actuation HFA aerosol inhaler See Rx Instructions .ROUTE .COMPLEX Qty: 12 1RF Dose Instruction: INHALE 1 PUFF TWICE A DAY Rx Instructions: INHALE 1 PUFF TWICE A DAY albuterol sulfate [Ventolin HFA] 90 mcg/actuation HFA aerosol inhaler 2 puff Inhalation Q4H PRN (Reason: bronchospasm) Qty: 1 1RF trazodone 50 mg tablet 150 mg PO BEDTIME PRN (Reason: insomnia) Qty: 90 2RF (DME) Disabled Parking Permint See Rx Instructions .ROUTE .MEDSUPPLY Qty: 1 0RF Rx Instructions: I find this patient to be medically disabled and qualified for Disabled Parking as indicated and signed on the Accompanying Disabled Parking Application for individuals. Referrals: Quincy Mason, [Primary Care Provider] - Stand Alone Forms: Patient Portal/API/Survey
[2024-12-05] MEDS: methylPREDNISolone 125 MG/2 ML VIAL IV (22:27)
[2024-12-05] MEDS: ALBUTEROL 2.5 MG/3 ML NEB (ADULT) 5 MG INH (22:30)
[2024-12-05 22:35] LABS: Add Manual Diff / Slide Review NO; Basophils Absolute Auto 100 /uL (0-100); Basophils Percent Auto 1.1 % (0-2); Eosinophils Absolute Auto 300 /uL (0-450); Eosinophils Percent Auto 5.7 % (2-4); Hematocrit 38.5 % (36-46); Hemoglobin 13.1 g/dL (12.0-16.0); Lymphocytes Absolute Auto 1700 /uL (1100-4500); Lymphocytes Percent Auto 28.6 % (25-40); Mean Corpuscular HGB Conc 33.9 % (30-36); Mean Corpuscular Hemoglobin 31.4 PG (26-34); Mean Corpuscular Volume 92.5 fL (80-100); Monocytes Absolute Auto 600 /uL (0-900); Monocytes Percent Auto 9.5 % (3-14); Neutrophils Absolute Auto 3300 /uL (1500-7000); Neutrophils Percent Auto 55.1 % (50-75); Platelet Count 229 X10^3/uL (150-400); Red Blood Cell Count 4.16 X10^6/uL (4.0-5.2); Red Cell Distribution Width 13.7 % (11.6-14.8)
[2024-12-05 22:40] LABS: Alanine Aminotransferase 45 IU/L (<35); Albumin 4.1 g/dL (3.5-5.0); Albumin Globulin Ratio 1.3 (1.0-2.8); Aspartate Aminotransferase 75 IU/L (14-36); BUN Creatinine Ratio 15.9 (6-22); Blood Urea Nitrogen 18 mg/dL (7-17); Calcium 9.1 mg/dL (8.4-10.2); Carbon Dioxide 27 mmol/L (22-32); Estimated Glomerular Filt Rate 55 mL/min (>60); Globulin 3.1 g/dL (1.7-4.1); Glucose 82 mg/dL (80-110); Total Protein 7.2 g/dL (6.3-8.2)
[2024-12-05 22:52] LABS: Troponin I < 0.012 ng/mL (0.01-0.034)
[2024-12-05 23:01] LABS: Alkaline Phosphatase 40 U/L (38-126); Bilirubin Total 0.3 mg/dL (0.2-1.3); Chloride 105 mmol/L (98-107); Creatine Kinase 51 U/L (30-135); HEMOLYSIS 24 (0-50); Potassium 4.3 mmol/L (3.4-5.1); Sodium 137 mmol/L (137-145)
[2024-12-05] MEDS: ALBUTEROL HFA PREPACK 1 BOX MISC (23:53)
== END 2024-12-06 00:03 | disposition home or self-care (01) ==
PROVIDERS: Emergency Provider Emergency Medicine; PCP Family Medicine
DX: J45.901 Unspecified asthma with (acute) exacerbation (principal); J06.9 Acute upper respiratory infection, unspecified; R00.0 Tachycardia, unspecified; R07.89 Other chest pain; N18.30 Chronic kidney disease, stage 3 unspecified
CPT/HCPCS: 87635; 87400 ×2; 87420; 0241U; 36415; 71046; 80053; 82550; 84484; 85025; 93005; 93010; 94640; 96374; 99284; J2919; J7613

== ENCOUNTER 2024-12-16 17:45 | Emergency (ER) | payer OTHER, SELFPAY ==
[2024-12-16] VITALS (8 sets, daily range): BP systolic 108–120; BP diastolic 68–72; PULSE 70–80; RESP 17–24; TEMP 37; O2SAT 91–100; BMI 25.7
--- NOTE | 2024-12-16 18:08 | DI.RAD.S_ITS ---
PROCEDURE: XR CHEST 1V INDICATIONS: Shortness of breath TECHNIQUE: One view of the chest was acquired. COMPARISON: [facility], CR, XR CHEST 2V, 12/05/2024, 20:24. FINDINGS: Surgical changes and devices: None. Lungs and pleura: Lungs are clear. No pleural effusions or pneumothorax. Mediastinum: Mediastinal contours appear normal. Heart size is normal. Bones and chest wall: No suspicious bony lesions. Overlying soft tissues appear unremarkable. IMPRESSION: No acute cardiopulmonary abnormality is seen. Dictated by: iLu Zamora M.D. on 12/16/2024 at 19:03 Approved by: Liu Zamora M.D. on 12/16/2024 at 19:03
--- NOTE | 2024-12-16 18:08 | EKG_ITS ---
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
[2024-12-16] MEDS: ALBUTEROL 2.5 MG/3 ML NEB (ADULT) INH (19:35)
[2024-12-16 19:37] LABS: Add Manual Diff / Slide Review NO; Basophils Absolute Auto 0 /uL (0-100); Basophils Percent Auto 0.4 % (0-2); Eosinophils Absolute Auto 200 /uL (0-450); Eosinophils Percent Auto 2.5 % (2-4); Hematocrit 39.2 % (36-46); Hemoglobin 13.4 g/dL (12.0-16.0); Lymphocytes Absolute Auto 1000 /uL (1100-4500); Lymphocytes Percent Auto 15.3 % (25-40); Mean Corpuscular HGB Conc 34.1 % (30-36); Mean Corpuscular Hemoglobin 30.5 PG (26-34); Mean Corpuscular Volume 89.4 fL (80-100); Monocytes Absolute Auto 400 /uL (0-900); Monocytes Percent Auto 5.6 % (3-14); Neutrophils Absolute Auto 4900 /uL (1500-7000); Neutrophils Percent Auto 76.2 % (50-75); Platelet Count 205 X10^3/uL (150-400); Red Blood Cell Count 4.39 X10^6/uL (4.0-5.2); Red Cell Distribution Width 13.7 % (11.6-14.8); White Blood Cell Count 6.4 X10^3/uL (4.5-11.0)
[2024-12-16 19:41] LABS: INR 0.9 (0.9-1.3); Prothrombin Time 10.3 SECONDS (9.4-12.5)
[2024-12-16 19:44] LABS: Lactate (Lactic Acid) 1.3 mmol/L (0.7-2.1)
[2024-12-16 19:45] LABS: Alanine Aminotransferase 25 IU/L (<35); Albumin Globulin Ratio 1.2 (1.0-2.8); Alkaline Phosphatase 39 U/L (38-126); Aspartate Aminotransferase 40 IU/L (14-36); BUN Creatinine Ratio 12.1 (6-22); Bilirubin Total 0.6 mg/dL (0.2-1.3); Blood Urea Nitrogen 11 mg/dL (7-17); Calcium 8.7 mg/dL (8.4-10.2); Carbon Dioxide 25 mmol/L (22-32); Chloride 99 mmol/L (98-107); Estimated Glomerular Filt Rate > 60 mL/min (>60); Globulin 3.3 g/dL (1.7-4.1); Glucose 86 mg/dL (80-110); HEMOLYSIS < 15 (0-50); Potassium 3.6 mmol/L (3.4-5.1); Sodium 134 mmol/L (137-145); Total Protein 7.3 g/dL (6.3-8.2)
[2024-12-16 19:57] LABS: NT-proBNP (BNP-Adult 18+) 41 pg/mL (<125); Troponin I < 0.012 ng/mL (0.01-0.034)
[2024-12-16 20:18] LABS: Influenza A - CEPHEID Flu A POSITIVE (NEGATIVE); Influenza B - CEPHEID Flu B NEGATIVE (NEGATIVE); Respiratory Syncytial Virus Negative (Negative)
[2024-12-16 20:24] LABS: COVID-19 CEPHEID 4-PLEX PCR Negative (Negative)
--- NOTE | 2024-12-16 20:53 | ED_ITS ---
HPI - General Adult General Chief complaint: Upper Respiratory Symptoms Stated complaint: flu symptoms x2 wks Time Seen by Provider: 12/16/24 18:46 Source: patient Mode of arrival: Ambulatory History of Present Illness HPI narrative: 64-year-old woman with generalized anxiety disorder, hypothyroidism, hyperlipidemia, intermittent asthma, stage 3 kidney diseasepresents today complaining of cough for 2 weeks it does not seem to be improving after being given steroids and and using her Flovent and albuterol with spacer. She is complaining of significant cough that is extremely painful, nonproductive and at this point interrupting her sleep. She is miserable and looking for additional help. She has not been vomiting, she has been able to eat and drink, she has noted that fevers have increased over the last 1-2 days. Related Data Previous Rx's Medication Instructions Recorded Disabled Parking Permint #1 ea 05/27/23 hydroxyzine HCl 25 mg tablet 25 mg PO QID PRN anxiety #120 tabs 07/08/23 loratadine 10 mg tablet (Allergy 10 mg PO DAILY PRN allergy 12/26/23 Relief (loratadine)) symptoms #30 tabs Cytomel 5 mcg tablet (liothyronine) 5 mcg PO BID #60 tabs 06/30/24 Synthroid 125 mcg tablet 125 mcg PO DAILY #30 tabs 06/30/24 (levothyroxine) pilocarpine HCl 5 mg tablet 5 mg PO TID PRN dry mouth #90 tabs 08/05/24 diphenhydramine HCl 25 mg capsule 50 mg (2 x 25 mg) PO Q6H PRN 09/02/24 allergic reaction #90 caps estradiol 0.1 mg/24 hr semiweekly 1 patch transdermal 2XW #8 ea 09/15/24 transdermal patch (Vivelle-Dot) gabapentin 300 mg capsule 600 mg (2 x 300 mg) PO TID PRN 09/21/24 (Neurontin) Pain #180 caps tizanidine 4 mg tablet 4 mg PO TID #270 tabs 09/21/24 alprazolam 1 mg tablet 1 mg PO BID #90 tabs 10/06/24 Prozac 20 mg capsule (fluoxetine) 60 mg (3 x 20 mg) PO DAILY #90 caps 10/19/24 albuterol sulfate 90 mcg/actuation 2 puff inhalation Q4H PRN 10/27/24 aerosol inhaler (Ventolin HFA) bronchospasm #1 inh fluticasone propionate 110 See Rx Instructions .Route 10/27/24 mcg/actuation HFA aerosol inhaler .COMPLEX #12 grams trazodone 50 mg tablet 150 mg (3 x 50 mg) PO BEDTIME PRN 12/03/24 insomnia #90 tabs albuterol sulfate 90 mcg/actuation 2 inh inhalation Q4-6H PRN 12/05/24 breath activated powder inhaler shortness of breath or wheezing #1 ea fluticasone 250 mcg-salmeterol 50 1 inh inhalation BID #60 ea 12/05/24 mcg/dose blistr powdr for inhalation (Advair Diskus) prednisone 10 mg tablets in a dose See Rx Instructions PO .COMPLEX 12/05/24 pack #21 ea oxycodone-acetaminophen 5 mg-325 0.5 - 1 tab PO Q6H PRN pain #14 12/16/24 mg tablet tabs oxycodone-acetaminophen 5 mg-325 0.5 - 1 tab PO Q6H PRN pain and 12/16/24 mg tablet cough #14 tabs prednisone 20 mg tablet 20 mg PO DAILY #5 tabs 12/16/24 prednisone 20 mg tablet 20 mg PO DAILY #5 tabs 12/16/24 Allergies Allergy/AdvReac Type Severity Reaction Status Date / Time Penicillins [PENICILLINS] Allergy Intermediate HIVES Verified 05/29/24 16:37 Sulfa (Sulfonamide Allergy Intermediate HIVES Verified 05/29/24 16:37 Antibiotics) ciprofloxacin AdvReac Intermediate joint Verified 05/29/24 16:37 pain, abdominal pain Review of Systems Review of Systems Narrative: Pertinent positive and negative findings as per HPI Patient History Medical History Insomnia Palpitations Overweight (BMI 25.0-29.9) Elevated LFTs Chronic kidney disease (CKD) stage G3a/A1, moderately decreased glomerular filtration rate (GFR) between 45-59 mL/min/1.73 square meter and albuminuria creatinine ratio less than 30 mg/g Osteopenia after menopause Edentulous Hypothyroidism Asthma (~1967) Seasonal allergies Abnormal chest x-ray (~2005) Agoraphobia ADD (attention deficit disorder) PTSD (post-traumatic stress disorder) Depression Anxiety Anorexia nervosa (~1975) Raynaud's disease Seizure (~1988) Migraines (~1983) History of frequent headaches ADHD (attention deficit hyperactivity disorder) Shoulder pain History of toe fracture (~2012) History of wrist fracture (~2012) History of ankle fracture (~1973) Fibromyalgia Ankle pain (~1997) Eczema Chickenpox Measles (~1971) Rubella Anemia Tinnitus Painful menstrual periods Ovarian cyst Irregular menstrual cycle Oral herpes Chlamydia (~1983) IBS (irritable bowel syndrome) (~1978) Hemorrhoids (~1983) Colon polyps (~1998) Adenomatous polyp of colon (06/17/17) Surgical History Anesthesia History of corrected cleft lip and palate (~1962) History of bladder suspension procedure Status post hysterectomy with oophorectomy (~2005) Status post tonsillectomy and adenoidectomy (~1996) Family History Father Mental health problem Colon cancer Grandfather Heart disease Grandmother Cancer Stroke Sister Age: 69 Mental health problem Grandfather No problems noted. Grandmother Old age Brother FH: prostate cancer Social History marital status: household members: spouse occupational status: disabled Smoking Status: Never smoker alcohol intake: current substance use type: does not use Smoking Status: Never smoker alcohol intake frequency: a few times a week Exam Initial Vital Signs Initial Vital Signs: Vital Signs Temperature 98.6 F 12/16/24 18:00 Pulse Rate 80 12/16/24 18:00 Respiratory Rate 22 12/16/24 18:00 Blood Pressure 111/70 12/16/24 18:00 Pulse Oximetry 100 12/16/24 18:00 Oxygen Delivery Method Room Air 12/16/24 18:00 General: Chronically ill-appearing, able to speak in full sentences, continued dry cough with obvious pain related to the cough HEENT: Moist mucous membranes, normal sclera with reactive pupils, Neck: No JVD, supple Respiratory: Lungs with no rhonchi and minimal wheezing appreciated. No accessory muscle use Cardiac: Regular rate and rhythm no murmurs no bruits Abdomen: Soft, nontender, good bowel tones, no flank pain Skin: pale without rashes Neurologic: Grossly neurologically intact with no obvious asymmetries or abnormalities Extremities: No trauma, no lower extremity edema Psych: Cooperative, appropriate insight and affect Course Orders Ordered: ED Orders 12/16/24 18:08 XR chest 1V Stat EKG-12 Lead Stat Measure peak expiratory flow ONCE RT Consult Eval and Treat NOW 12/16/24 19:25 Complete Blood Count AUTO DIFF Stat Comprehensive Metabolic Panel Stat Lactate (Lactic Acid) Stat NT-proBNP (BNP-Adult 18+) Stat Prothrombin Time INR Stat Troponin I Stat 12/16/24 19:26 Covid-19 + FLU A/B + RSV - PCR Stat Discontinued Medications Albuterol (Albuterol 2.5 Mg/3 Ml Neb (Adult)) 2.5 mg INH NOW ONE Stop: 12/16/24 19:34 Last Admin: 12/16/24 19:35 Dose: 2.5 mg Documented By: JAE Methylprednisolone (Methylprednisolone 125 Mg/2 Ml Vial) 60 mg IV NOW ONE Stop: 12/16/24 21:44 Last Admin: 12/16/24 21:59 Dose: 60 mg Documented By: SOILA Oxycodone/Acetaminophen (Oxycodone/Acetaminophen 5/325 Tablet) 1 tab PO NOW ONE Stop: 12/16/24 21:44 Last Admin: 12/16/24 22:00 Dose: 1 tab Documented By: SOILA Vital Signs Vital signs: Vital Signs - 8 hr 12/16/24 18:00 12/16/24 18:41 12/16/24 19:00 Temperature 98.6 F Pulse Rate 80 77 79 Respiratory Rate 22 24 17 Blood Pressure 111/70 Pulse Oximetry 100 95 91 Oxygen Delivery Method Room Air 12/16/24 19:00 12/16/24 19:30 12/16/24 19:35 Temperature Pulse Rate 75 75 Respiratory Rate 20 20 Blood Pressure 108/72 Pulse Oximetry 92 95 Oxygen Delivery Method Room Air Room Air 12/16/24 21:08 12/16/24 21:30 Temperature Pulse Rate 78 78 Respiratory Rate 23 24 Blood Pressure 120/70 112/69 Pulse Oximetry 94 95 Oxygen Delivery Method Medical Decision Making Lab Data 12/16/24 19:25 12/16/24 19:25 Labs: Lab Results 12/16/24 12/16/24 Range/Units 19:25 19:26 WBC 6.4 (4.5-11.0) X10^3/uL RBC 4.39 (4.0-5.2) X10^6/uL Hgb 13.4 (12.0-16.0) g/dL Hct 39.2 (36-46) % MCV 89.4 (80-100) fL MCH 30.5 (26-34) PG MCHC 34.1 (30-36) % RDW 13.7 (11.6-14.8) % Plt Count 205 (150-400) X10^3/uL Neut % (Auto) 76.2 H (50-75) % Lymph % (Auto) 15.3 L (25-40) % [place] % (Auto) 5.6 (3-14) % Eos % (Auto) 2.5 (2-4) % Baso % (Auto) 0.4 (0-2) % Neut # (Auto) 4900 (2773-4438) /uL Lymph # (Auto) 1000 L (2907-3752) /uL [place] # (Auto) 400 (0-900) /uL Eos # (Auto) 200 (0-450) /uL Baso # (Auto) 0 (0-100) /uL PT 10.3 (9.4-12.5) SECONDS INR 0.9 (0.9-1.3) Sodium 134 L (137-145) mmol/L Potassium 3.6 (3.4-5.1) mmol/L Chloride 99 (98-107) mmol/L Carbon Dioxide 25 (22-32) mmol/L BUN 11 (7-17) mg/dL Creatinine 0.91 (0.52-1.04) mg/dL Estimated GFR > 60 (>60) mL/min BUN/Creatinine Ratio 12.1 (6-22) Glucose 86 (80-110) mg/dL Lactate 1.3 (0.7-2.1) mmol/L Calcium 8.7 (8.4-10.2) mg/dL Total Bilirubin 0.6 (0.2-1.3) mg/dL AST 40 H (14-36) IU/L ALT 25 (<35) IU/L Alkaline Phosphatase 39 (38-126) U/L Troponin I < 0.012 (0.01-0.034) ng/mL NT-Pro-B Natriuret Pep 41 (<125) pg/mL Total Protein 7.3 (6.3-8.2) g/dL Albumin 4.0 (3.5-5.0) g/dL Globulin 3.3 (1.7-4.1) g/dL Albumin/Globulin Ratio 1.2 (1.0-2.8) SARS-CoV-2 (PCR) Negative (Negative) Influenza A (RT-PCR) Flu a positive H (NEGATIVE) Influenza B (RT-PCR) Flu b negative (NEGATIVE) RSV (PCR) Negative (Negative) MDM Narrative Medical decision making narrative: CC:Cough continuing for greater than 2 weeks after being treated with steroids and inhalers Complicating co-morbidities: anxiety, hypothyroidism, hypertension, hyperlipidemia, mild intermittent asthma, Data collected from: patient Social determinants of health that may influence the patients condition: sequential upper respiratory infections recently Medical records reviewed: primary care notes reviewed. ER note from the 03 of December with initial viral etiology exacerbating her mild asthma was diagnosed Differential considered: sequential virus, asthma exacerbation, congestive heart failure, bacterial pneumonia Exam documented above, pertinent findings include: patient appears to be quite uncomfortable in obvious pain from cough, side from the cough she has minimal wheeze and exam is reassuring Lab Test results independently reviewed as above. Pertinent findings: CBC is unremarkable chemistries showed no significant abnormalities. AST and ALT are lower than noted on 12/05 serology today is positive for influenza a, she was negative for influenza on December 05 Independently reviewed EKG: sinus rhythm at a rate of 80 QTC at 537. No acute ischemic change Imaging studies independently reviewed: chest x-ray is unremarkable Treatments: MDI, 60 mg of methylprednisolone IV, 1 oral Percocet Discussion: 64-year-old woman with pain and persistent cough. I suspect she is having sequential viral episodes. She did not test positive for influenza 2 weeks ago and is doing so now. Her asthma does seem to be appropriately treated she is having minimal wheeze. We discussed symptomatic treatment for influenza A. I will give her an additional 5 days of prednisone and she will continue with inhalers as she has not home. There was no indication for antibiotics and no signs of sepsis at this point. No indication she has congestive heart failure or other complicating cardiac etiology. Given the severe cough and musculoskeletal chest pain secondary to that half I have given her a small prescription for Percocet to help both with the pain and in overall cough suppression. Encourage continued ibuprofen and Tylenol for fevers and body aches. blood pressure is appropriate, she is not hypoxic on room air, there was no indication for additional imaging or hospitalization at this time.Questions are answered she is safe for discharge Discharge Plan Departure Patient Disposition: Home Clinical Impression: Influenza A Asthma exacerbation Qualifiers: Asthma severity: mild Asthma persistence: intermittent Qualified Code(s): J 45.21 - Mild intermittent asthma with (acute) exacerbation Instructions: DI for Influenza -- Adult Activity Restrictions/Additional Instructions: thank you for coming in today, I am sorry that you are continuing to suffer so much with this cough. I suspect you now have a 2nd virus. Two weeks ago, you did not test positive for influenza and today you are testing positive. Your blood work was reassuring. There was no evidence of bacterial pneumonia, sepsis, heart failure or other complication that would require you to be hospitalized today. I am going to suggest 5 more days of prednisone to help with the mild inflammation in your lungs. There is no indication for antibiotics at this time I am also going to give you a small prescription for oxycodone. This is a narcotic. This will help with the pain in your ribs from coughing so much and narcotics are in excellent cough suppressant. They do cause constipation, please make sure drinking plenty of fluids and add a stool softener if needed If you find that you are getting worse or develop any new symptoms, please feel free to return to the emergency department for further evaluation. Prescriptions: New prednisone 20 mg tablet 20 mg PO DAILY Qty: 5 0RF oxycodone-acetaminophen 5-325 mg tablet 0.5 - 1 tab PO Q6H PRN (Reason: pain) Qty: 14 0RF prednisone 20 mg tablet 20 mg PO DAILY Qty: 5 0RF oxycodone-acetaminophen 5-325 mg tablet 0.5 - 1 tab PO Q6H PRN (Reason: pain and cough) Qty: 14 0RF No Action hydroxyzine HCl 25 mg tablet 25 mg PO QID PRN (Reason: anxiety) Qty: 120 3RF alprazolam 1 mg tablet 1 mg PO BID Qty: 90 2RF Rx Instructions: Take 0.5 mg (1/2 tab) twice a day and take 2 mg (2 tabs) at night loratadine [Allergy Relief (loratadine)] 10 mg tablet 10 mg PO DAILY PRN (Reason: allergy symptoms) Qty: 30 3RF liothyronine [Cytomel] 5 mcg tablet 5 mcg PO BID Qty: 60 6RF levothyroxine [Synthroid] 125 mcg tablet 125 mcg PO DAILY Qty: 30 6RF pilocarpine HCl 5 mg tablet 5 mg PO TID PRN (Reason: dry mouth) Qty: 90 0RF diphenhydramine HCl 25 mg capsule 50 mg PO Q6H PRN (Reason: allergic reaction) Qty: 90 5RF estradiol [Vivelle-Dot] 0.1 mg/24 hr patch semiweekly 1 patch Transdermal 2XW Qty: 8 6RF gabapentin [Neurontin] 300 mg capsule 600 mg PO TID PRN (Reason: Pain) Qty: 180 1RF tizanidine 4 mg tablet 4 mg PO TID Qty: 270 3RF fluoxetine [Prozac] 20 mg capsule 60 mg PO DAILY Qty: 90 2RF Rx Instructions: Take with food Flovent HFA 110 mcg/actuation HFA aerosol inhaler See Rx Instructions .ROUTE .COMPLEX Qty: 12 1RF Dose Instruction: INHALE 1 PUFF TWICE A DAY Rx Instructions: INHALE 1 PUFF TWICE A DAY albuterol sulfate [Ventolin HFA] 90 mcg/actuation HFA aerosol inhaler 2 puff Inhalation Q4H PRN (Reason: bronchospasm) Qty: 1 1RF trazodone 50 mg tablet 150 mg PO BEDTIME PRN (Reason: insomnia) Qty: 90 2RF (DME) Disabled Parking Permint See Rx Instructions .ROUTE .MEDSUPPLY Qty: 1 0RF Rx Instructions: I find this patient to be medically disabled and qualified for Disabled Parking as indicated and signed on the Accompanying Disabled Parking Application for individuals. prednisone 10 mg tablets,dose pack See Rx Instructions .ROUTE .COMPLEX Qty: 21 0RF Rx Instructions: 6 tabs p.o. x1 day, then 5 tabs p.o. x1 day, then 4 tablets p.o. x1 day, then 3 tabs p.o. x1 day, then 2 tabs p.o. x1 day, then 1 tab p.o. x1 day albuterol sulfate 90 mcg/actuation aerosol powdr breath activated 2 inh inhalation Q4-6H PRN (Reason: shortness of breath or wheezing) Qty: 1 0RF fluticasone propion-salmeterol [Advair Diskus] 250-50 mcg/dose blister with device 1 inh inhalation BID Qty: 60 0RF Referrals: Quincy Mason DO [Primary Care Provider] - Stand Alone Forms: Patient Portal/API/Survey
[2024-12-16] MEDS: methylPREDNISolone 125 MG/2 ML VIAL 60 MG IV (21:59)
[2024-12-16] MEDS: OXYCODONE/ACETAMINOPHEN 5/325 TABLET 1 TAB PO (22:00)
== END 2024-12-16 22:50 | disposition home or self-care (01) ==
PROVIDERS: Emergency Medicine; Emergency Provider Emergency Medicine; PCP Family Medicine
DX: J10.1 Influenza due to other identified influenza virus with other respiratory manifestations (principal); J45.21 Mild intermittent asthma with (acute) exacerbation
CPT/HCPCS: 0241U; 36415; 71045; 80053; 83605; 83880; 84484; 85025; 85610; 93005; 94640; 96374; 99284; J2919; J7613